=== PATIENT | female | born 1940 | race Caucasian/White ===

== ENCOUNTER 2016-09-20 16:00 | Inpatient (IN) | payer MEDICARE, OTHER ==
[2016-09-20] MEDS ORDERED: Sodium Chloride 0.9% 10 ML Syringe FLUSH PRN (17:11)
--- NOTE | 2016-09-20 18:39 | EDM.PDOC ---
ED HISTORY OF PRESENT ILLNESS - General Chief Complaint: Cardiovascular Problem Stated Complaint: LOW HEART RATE Time Seen by Provider: 09/20/16 16:54 Source of Information: Reports: Patient, Other (Friends) History Limitations: Reports: No limitations - History of Present Illness INITIAL COMMENTS - FREE TEXT/NARRATIVE: The patient presents with syncope and generalized weakness. This has been going on for a few months. She get lightheaded very easy and she has passed out a few times. She also will get some headaches at times. She denies chest pain or shortness of breath. She has no abdominal pain, nausea or vomiting. She has no dysuria. She has no fever, chills or cough. She has been to a few doctors and even a placement secretary who put in a loop recorder. Nothing has been found for the cause of her symptoms. This has been affecting her life. She moved into [facility] and then she moved from the 3rd floor to the 1st floor. She also does not go do things any more. She missed [employer] study this morning and 2 of her friends there came to see her. One is a nurse and the other is Dr Wynne. Dr Wynne noticed her pulse was in the 30s. She was in bigeiny here but not profusing the PVCs so her heart rate was in the 30s. Timing/Duration: Reports: Week(s): Severity: moderate Improves with: Reports: None Worsens with: Reports: Movement Context, General: Reports: Activity Associated Symptoms (General): Reports: syncope. Denies: chest pain, cough, fever/chills, nausea/vomiting, shortness of breath - Related Data Allergies/ADRs: Allergies Allergy/AdvReac Type Severity Reaction Status Date / Time aspirin Allergy Chills Verified 08/23/16 09:17 Home Meds: Home Meds Levothyroxine [Synthroid] 50 mcg PO ACBRK 01/29/14 [History] Carboxymethylcellulose Sodium [Refresh Tears] 1 drop EYEBOTH DAILY 09/24/15 [ History] Melatonin 9 mg PO BEDTIME 11/22/15 [History] Vit C/E/Zn/Coppr/Lutein/Zeaxan [Preservision Areds 2 Softgel] 1 tab PO DAILY [History] Ranitidine HCl [Zantac] 150 mg PO BID 02/28/16 [History] Fluticasone Propionate [Flonase] 2 spray INH DAILY 09/20/16 [History] Lavender Oil [Lavender Fragrance Oil] 1 cap PO DAILY PRN 09/20/16 [History] Past Medical History HEENT History: Reports: Epistaxis, Impaired vision Other HEENT History: Wears glasses Cardiovascular History: Reports: High cholesterol Gastrointestinal History: Reports: Colon polyp, GERD Genitourinary History: Reports: Urinary incontinence 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: , 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 Musculoskeletal History: Reports: Arthritis Neurological History: Reports: Concussion Psychiatric History: Reports: Anxiety, Depression Endocrine/Metabolic History: Reports: Hypothyroidism - Infectious Disease History Infectious Disease History: Reports: Chicken pox, Measles, MRSA - Past Surgical History HEENT Surgical History: Reports: Cataract surgery, Naso-sinus surgery Female Surgical History: Reports: D&C, Hysterectomy, Salpingo-oophorectomy Neurological Surgical History: Reports: Lumbar spine Musculoskeletal Surgical History: Reports: Arthroscopic knee Social & Family History - Family History Family Medical History: Noncontributory - Tobacco Use Smoking Status *Q: Never Smoker Second Hand Smoke Exposure: No - Caffeine Use Caffeine Use: Reports: Tea - Alcohol Use Days Per Week of Alcohol Use: 0 - Recreational Drug Use Recreational Drug Use: No Drug Use in Last 12 Months: No - Living Situation & Occupation Living situation: Reports: , alone Occupation: retired ED ROS GENERAL - Review of Systems Review Of Systems: See Below Constitutional: Reports: no symptoms HEENT: Reports: No symptoms Respiratory: Reports: no symptoms Cardiovascular: Reports: Other (bradycardia) Endocrine: Reports: no symptoms GI/Abdominal: Reports: No symptoms : Reports: no symptoms Musculoskeletal: Reports: no symptoms Skin: Reports: no symptoms Neurological: Reports: no symptoms ED EXAM, GENERAL - Physical Exam Exam: See Below Exam Limited By: No limitations General Appearance: alert, no apparent distress Ears: normal external exam Nose: normal inspection Head: atraumatic, normocephalic Neck: normal inspection Respiratory/Chest: no respiratory distress, lungs clear, normal breath sounds Cardiovascular: no edema, no murmur, bradycardia GI/Abdominal: soft, non tender, no organomegaly Back Exam: normal inspection Extremities: normal inspection EKG INTERPRETATION EKG Date: 09/20/16 Time: 16:21 Rhythm: NSR Rate (beats/min): 88 [place]: normal P-wave: present QRS: normal ST-T: normal QT: normal EKG Interpretation Comments: Ventricular bigeminy Course - Vital Signs Last Recorded V/S: Last Vital Signs Temp 96.8 F 09/20/16 16:12 Pulse 76 09/20/16 16:12 Resp 14 09/20/16 16:12 BP 153/72 H 09/20/16 16:12 Pulse Ox 100 09/20/16 16:12 - Orders/Labs/Meds Orders: Active Orders 24 hr Category Date Time Status Patient Status [ADT] Routine ADT 09/20/16 18:38 Active Cardiac Monitoring [RC] . DIRECTED Care 09/20/16 17:11 Active EKG Documentation Completion [RC] STAT Care 09/20/16 17:11 Active Peripheral IV Care [RC] . DIRECTED Care 09/20/16 17:12 Active Chest 1V Frontal [CR] Stat Exams 09/20/16 17:12 Taken Sodium Chloride 0.9% [Saline Flush] Med 09/20/16 17:11 Active 10 ml FLUSH ASDIRECTED PRN Peripheral IV Insertion Adult [OM.PC] Stat Oth 09/20/16 17:11 Ordered Medication Orders Sodium Chloride (Saline Flush) 10 ml FLUSH ASDIRECTED PRN PRN Reason: Keep Vein Open Last Admin: 09/20/16 17:34 Dose: 10 ml Labs: Laboratory Tests 09/20/16 09/20/16 Range/Units 17:24 17:24 WBC 6.10 (3.98-10.04) K/mm3 RBC 3.98 (3.98-5.22) M/mm3 Hgb 11.9 (11.2-15.7) gm/L Hct 34.9 (34.1-44.9) % MCV 87.7 (79.4-94.8) fl MCH 29.9 (25.6-32.2) pg MCHC 34.1 (32.2-35.5) g/dl RDW Std Deviation 50.1 H (36.4-46.3) fL Plt Count 201 (182-369) K/mm3 MPV 10.2 (9.4-12.3) fl Neut % (Auto) 55.4 (34.0-71.1) % Lymph % (Auto) 28.9 (19.3-51.7) % [place] % (Auto) 13.9 H (4.7-12.5) % Eos % (Auto) 1.5 (0.7-5.8) Baso % (Auto) 0.3 (0.1-1.2) % Neut # 3.38 (1.56-6.13) K/mm3 Lymph # 1.76 (1.18-3.74) K/mm3 [place] # 0.85 H (0.24-0.36) K/mm3 Eos # 0.09 (0.04-0.36) K/mm3 Baso # 0.02 (0.01-0.08) K/mm3 Sodium 134 L (136-145) mEq/L Potassium 4.1 (3.5-5.1) mEq/L Chloride 99 (98-107) mEq/L Carbon Dioxide 27 (21-32) mEq/L Anion Gap 12.1 (5-15) BUN 14 (7-18) mg/dL Creatinine 0.7 (0.55-1.02) mg/dL Est Cr Clr Drug Dosing 48.34 mL/min Estimated GFR (MDRD) > 60 (>60) mL/min BUN/Creatinine Ratio 20.0 H (14-18) Glucose 92 (74-106) mg/dL Calcium 8.6 (8.5-10.1) mg/dL Total Bilirubin 0.6 (0.2-1.0) mg/dL AST 19 (15-37) U/L ALT 31 (14-59) U/L Alkaline Phosphatase 56 (46-116) U/L Troponin I < 0.017 (0.00-0.056) ng/mL Total Protein 6.6 (6.4-8.2) g/dl Albumin 3.6 (3.4-5.0) g/dl Globulin 3.0 gm/dL Albumin/Globulin Ratio 1.2 (1-2) TSH 3rd Generation 1.085 (0.358-3.74) uIU/mL Meds: Medications Generic Name Dose Route Start Last Admin Trade Name Freq PRN Reason Stop Dose Admin Sodium Chloride 10 ml 09/20/16 17:11 09/20/16 17:34 Saline Flush FLUSH 10 ml ASDIRECTED PRN Administration Keep Vein Open - Re-Assessments/Exams Free Text/Narrative Re-Assessment/Exam: 09/20/16 18:53 I ordered an IV saline lock. Her EKG shows NSR and ventricular bigeminy. The PVCs are not profusing and her heart rate is slow in the 30s. Her CBC and CMP look good. Her troponin is negative. I feel she needs to be admitted and possibly get a pacemaker. I talked with Dr Choudhary and she agreed to the admission and I also talked with Dr Rodriguez. Departure - Departure Time of Disposition: 19:00 Disposition: Refer to Observation Condition: fair Clinical Impression: Syncope, Dizziness, Bradycardia, Generalized weakness Forms: ED Department Discharge - My Orders Last 24 Hours: My Active Orders 09/20/16 17:11 Cardiac Monitoring [RC] . DIRECTED EKG Documentation Completion [RC] STAT Sodium Chloride 0.9% [Saline Flush] 10 ml FLUSH ASDIRECTED PRN Peripheral IV Insertion Adult [OM.PC] Stat 09/20/16 17:12 Peripheral IV Care [RC] . DIRECTED Chest 1V Frontal [CR] Stat 09/20/16 18:38 Patient Status [ADT] Routine - Assessment/Plan Last 24 Hours: My Active Orders 09/20/16 17:11 Cardiac Monitoring [RC] . DIRECTED EKG Documentation Completion [RC] STAT Sodium Chloride 0.9% [Saline Flush] 10 ml FLUSH ASDIRECTED PRN Peripheral IV Insertion Adult [OM.PC] Stat 09/20/16 17:12 Peripheral IV Care [RC] . DIRECTED Chest 1V Frontal [CR] Stat 09/20/16 18:38 Patient Status [ADT] Routine
--- NOTE | 2016-09-20 20:49 | PCM.HP ---
H&P History of Present Illness - General Date of Service: 09/20/16 Admit Problem/Dx: Admission Diagnosis/Problem Admission Diagnosis/Problem Syncope Source of Information: Patient, Provider History Limitations: Reports: No limitations - History of Present Illness Initial Comments - Free Text/Narative: 76 year old female who has been evaluated over several months has had syncopal as well as pre-syncopal episodes. Reportedly had a loop recorder without identification of an arrhythmia. Apparently had a syncopal episode on the day of admission, associated with generalized weakness. Lifestyle has been effected including moving to a lower level unit at [facility] to minimize fatigue. No other cardiac complaints were voiced. Physical exam as well as ECG document HR 30-40s. Obs admission will be ordered, [facility] TBA on 09/21/16. Onset of Symptoms: Reports: gradual Duration of Symptoms: Reports: Week(s):, Getting worse, Intermittent Location: Reports: chest Quality: Reports: Same as previous episode Improves with: Reports: None Worsens with: Reports: None Associated Symptoms: Reports: shortness of breath, weakness, other (presyncopal) Right Middle Anterior Abdomen Pain Score (Numeric/FACES): 5 - Related Data Allergies/Adverse Reactions: Allergies Allergy/AdvReac Type Severity Reaction Status Date / Time aspirin Allergy Chills Verified 08/23/16 09:17 Home Medications: Home Meds Levothyroxine [Synthroid] 50 mcg PO ACBRK 01/29/14 [History] Carboxymethylcellulose Sodium [Refresh Tears] 1 drop EYEBOTH DAILY 09/24/15 [ History] Melatonin 9 mg PO BEDTIME 11/22/15 [History] Vit C/E/Zn/Coppr/Lutein/Zeaxan [Preservision Areds 2 Softgel] 1 tab PO DAILY [History] Ranitidine HCl [Zantac] 150 mg PO BID 02/28/16 [History] Fluticasone Propionate [Flonase] 2 spray INH DAILY 09/20/16 [History] Lavender Oil [Lavender Fragrance Oil] 1 cap PO DAILY PRN 09/20/16 [History] Past Medical History HEENT History: Reports: Impaired vision Other HEENT History: Wears glasses Cardiovascular History: Reports: High cholesterol, Other (see below) Other Cardiovascular History: loop recorder Gastrointestinal History: Reports: Colon polyp, GERD Genitourinary History: Reports: Urinary incontinence 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: , 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 Musculoskeletal History: Reports: Arthritis Neurological History: Reports: Concussion Psychiatric History: Reports: Anxiety, Depression Endocrine/Metabolic History: Reports: Hypothyroidism - Infectious Disease History Infectious Disease History: Reports: Chicken pox, Measles - Past Surgical History HEENT Surgical History: Reports: Cataract surgery, Naso-sinus surgery Cardiovascular Surgical History: Reports: None GI Surgical History: Reports: Other (see below) Other GI Surgeries/Procedures: had 2 polyps removed and were not cancerus Female Surgical History: Reports: D&C, Hysterectomy, Salpingo-oophorectomy Endocrine Surgical History: Reports: None Neurological Surgical History: Reports: Lumbar spine Other Neurological Surgeries/Procedures: minor surgeryto back Musculoskeletal Surgical History: Reports: Arthroscopic knee Social & Family History - Family History Family Medical History: Noncontributory - Tobacco Use Smoking Status *Q: Never Smoker Second Hand Smoke Exposure: No - Caffeine Use Caffeine Use: Reports: Soda Caffeine Use Comment: rarely with upset stomache and occassionally chamomile tea - Alcohol Use Days Per Week of Alcohol Use: 0 - Recreational Drug Use Recreational Drug Use: No Drug Use in Last 12 Months: No - Living Situation & Occupation Living situation: Reports: , alone Occupation: retired H&P Review of Systems - Review of Systems: Review Of Systems: See Below General: Reports: weakness, fatigue HEENT: Reports: no symptoms Pulmonary: Reports: shortness of breath Cardiovascular: Reports: dyspnea on exertion, lightheadedness. Denies: no symptoms Gastrointestinal: Reports: No symptoms Genitourinary: Reports: no symptoms Musculoskeletal: Reports: no symptoms Skin: Reports: no symptoms Psychiatric: Reports: no symptoms Neurological: Reports: no symptoms Hematologic/Lymphatic: Reports: no symptoms Immunologic: Reports: no symptoms Exam - Exam Exam: See Below - Vital Signs Vital Signs: Last Vital Signs Temp 36.0 C 09/20/16 16:12 Pulse 76 09/20/16 16:12 Resp 14 09/20/16 16:12 BP 153/72 H 09/20/16 16:12 Pulse Ox 100 09/20/16 16:12 Weight: 48.353 kg - Exam Quality Assessment: DVT prophylaxis General: alert, oriented, cooperative HEENT: Conjunctiva clear, EACs clear, EOMI, Hearing intact, Mucosa moist & pink , Nares patent, Normal nasal septum, Posterior pharynx clear, Pupils equal, Pupils reactive Neck: supple, trachea midline Lungs: Normal respiratory effort Cardiovascular: regular rate, irregular rhythm, bradycardia Abdomen: normal bowel sounds, soft (Female) Exam: Deferred Rectal (Female) Exam: Deferred Back Exam: normal inspection Extremities: normal inspection Skin: warm, dry Neurological: cranial nerves intact, normal speech Neuro Extensive - Mental Status: alert, oriented x3, normal mood/affect, normal cognition, memory intact Neuro Extensive - Motor, Sensory, Reflexes: CN II-XII intact Psychiatric: alert, normal affect, normal mood - Patient Data Result Diagrams: 09/22/16 05:22 09/22/16 05:22 *Q Meaningful Use (ADM) - VTE *Q VTE Criteria *Q: - Stroke *Q Stroke Criteria *Q: - AMI *Q AMI Criteria *Q: Problem List Initiated/Reviewed/Updated: Yes Orders Last 24hrs: Active Orders 24 hr Category Date Time Status Antiembolic Devices [RC] PER UNIT ROUTINE Care 09/20/16 20:40 Ordered Bedrest [RC] ASDIRECTED Care 09/20/16 20:35 Ordered EKG 12 Lead [EKG Documentation Completion] [RC] ROUTINE Care 09/21/16 08:00 Ordered Vital Signs [RC] PER UNIT ROUTINE Care 09/20/16 20:31 Ordered Heart Healthy Diet [DIET] Diet 09/20/16 Dinner Ordered CXR [Chest 1V Frontal] [CR] Routine Exams 09/21/16 17:00 Ordered Echo Comp wo Cont [US] Routine Exams 09/21/16 09:00 Ordered BASIC METABOLIC PANEL,BMP [CHEM] Routine Lab 09/21/16 05:00 Ordered CBC WITH AUTO DIFF [HEME] Routine Lab 09/21/16 05:00 Ordered INR,PT,PROTHROMBIN TIME [COAG] Routine Lab 09/21/16 05:00 Ordered LIPID PANEL [CHEM] Routine Lab 09/21/16 05:00 Ordered PTT,PARTIAL THROMBOPLSTIN TIME [COAG] Routine Lab 09/21/16 05:00 Ordered Carboxymethylcellulose Sodium Med 09/21/16 09:00 Ordered 1 drop EYEBOTH DAILY Famotidine [Pepcid] Med 09/20/16 21:00 Active 20 mg PO BID Fluticasone Propionate Med 09/21/16 09:00 Ordered 2 spray INH DAILY Levothyroxine [Synthroid] Med 09/20/16 19:45 Active 50 mcg PO ACBRK Melatonin Med 09/20/16 21:00 Pending 9 mg PO BEDTIME [place] Hose [Antiembolic Hose] [OM.PC] Routine Oth 09/20/16 20:40 Ordered Medication Orders Famotidine (Pepcid) 20 mg PO BID CELIO Levothyroxine Sodium (Synthroid) 50 mcg PO ACBRK CELIO Non-Formulary Medication (Melatonin) 9 mg PO BEDTIME CELIO Non-Formulary Medication (Fluticasone Propionate) 2 spray INH DAILY CELIO Non-Formulary Medication (Carboxymethylcellulose Sodium) 1 drop EYEBOTH DAILY CELIO Sodium Chloride (Saline Flush) 10 ml FLUSH ASDIRECTED PRN PRN Reason: Keep Vein Open Last Admin: 09/20/16 17:34 Dose: 10 ml Assessment/Plan Comment:: Impression: Sinus node dysfunction Symptomatic bradycardia Syncope, acute with frequent episodes of lightheadedness/presyncope Plan: DVT/GI prophylaxis PPM, planned 09/21/16 at 1300. CXR post procedure DC~24-48 hours post op Consult PT/OT/SW
[2016-09-20] MEDS ORDERED: MELATONIN 9 MG PO SCH (21:00)
[2016-09-20] MEDS ORDERED: traZODone 50 MG Tab PO PRN (21:25)
[2016-09-20] MEDS: Levothyroxine 50 MCG Tab PO SCH (21:29)
[2016-09-20] MEDS: Famotidine 20 MG Tab PO SCH (21:37)
[2016-09-21] MEDS: Levothyroxine 50 MCG Tab PO SCH (05:14)
[2016-09-21] MEDS: Famotidine 20 MG Tab PO SCH ×2 (08:41→08:52)
--- NOTE | 2016-09-21 08:41 | CR ---
Chest: Portable view of the chest was obtained. Comparison: Previous portable chest x-ray of 08/23/16. Heart size at the upper limits of normal. Tortuous thoracic aorta is seen. Atherosclerotic change is noted within the aortic knob. Lungs are clear with no acute infiltrates. Mild scoliosis is noted within the spine with scattered degenerative change. Bony structures are also osteopenic. Impression: 1. Incidental findings. Nothing acute is identified on portable chest x-ray. Diagnostic code #2
[2016-09-21] MEDS ORDERED: FLUTICASONE PROPIONATE INH SCH (09:00)
[2016-09-21] MEDS ORDERED: Non-Formulary Medication 1 Each (Carboxymethylcellulose Sodium 1 DROP) EYEBOTH SCH (09:00)
[2016-09-21] MEDS: Hypromellose 0.5% Ophth Soln 15 ML Bottle EYEBOTH SCH (10:10)
[2016-09-21] MEDS ORDERED: Ondansetron 4 MG/2 ML SDV IVPUSH PRN (10:54)
[2016-09-21] MEDS ORDERED: fentaNYL 100 MCG/2 ML SDV IVPUSH PRN (10:54)
--- NOTE | 2016-09-21 10:54 | PCM.PREANE ---
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219 kg ASA Class: 3 Mental Status: alert & oriented x3 Airway Class: Mallampati = 3 Dentition: Reports: normal dentition Thyro-Mental Finger Breadths: 2 Mouth Opening Finger Breadths: 3 ROM/Head Extension: limited/partial Respiratory Status: lungs clear to auscultation bilaterally Cardiovascular Status: no murmur, irregular pulse - LAB Values: Laboratory Last Values WBC 5.20 K/mm3 (3.98-10.04) 09/21/16 05:15 RBC 3.98 M/mm3 (3.98-5.22) 09/21/16 05:15 Hgb 11.9 gm/L (11.2-15.7) 09/21/16 05:15 Hct 35.2 % (34.1-44.9) 09/21/16 05:15 MCV 88.4 fl (79.4-94.8) 09/21/16 05:15 MCH 29.9 pg (25.6-32.2) 09/21/16 05:15 MCHC 33.8 g/dl (32.2-35.5) 09/21/16 05:15 RDW Std Deviation 51.0 fL (36.4-46.3) H 09/21/16 05:15 Plt Count 194 K/mm3 (182-369) 09/21/16 05:15 MPV 10.9 fl (9.4-12.3) 09/21/16 05:15 Neut % (Auto) 47.5 % (34.0-71.1) 09/21/16 05:15 Lymph % (Auto) 36.0 % (19.3-51.7) 09/21/16 05:15 [place] % (Auto) 14.2 % (4.7-12.5) H 09/21/16 05:15 Eos % (Auto) 2.1 (0.7-5.8) 09/21/16 05:15 Baso % (Auto) 0.2 % (0.1-1.2) 09/21/16 05:15 Neut # 2.47 K/mm3 (1.56-6.13) 09/21/16 05:15 Lymph # 1.87 K/mm3 (1.18-3.74) 09/21/16 05:15 [place] # 0.74 K/mm3 (0.24-0.36) H 09/21/16 05:15 Eos # 0.11 K/mm3 (0.04-0.36) 09/21/16 05:15 Baso # 0.01 K/mm3 (0.01-0.08) 09/21/16 05:15 Manual Slide Review Not Reportable 09/21/16 05:15 PT 10.8 SECONDS (8.0-13.0) 09/21/16 05:15 INR 1.02 09/21/16 05:15 APTT 25 SECONDS (22-36) 09/21/16 05:15 Sodium 139 mEq/L (136-145) 09/21/16 05:15 Potassium 4.2 mEq/L (3.5-5.1) 09/21/16 05:15 Chloride 105 mEq/L (98-107) 09/21/16 05:15 Carbon Dioxide 29 mEq/L (21-32) 09/21/16 05:15 Anion Gap 9.2 (5-15) 09/21/16 05:15 BUN 12 mg/dL (7-18) 09/21/16 05:15 Creatinine 0.7 mg/dL (0.55-1.02) 09/21/16 05:15 Est Cr Clr Drug Dosing 48.34 mL/min 09/21/16 05:15 Estimated GFR (MDRD) > 60 mL/min (>60) 09/21/16 05:15 BUN/Creatinine Ratio 17.1 (14-18) 09/21/16 05:15 Glucose 83 mg/dL (74-106) 09/21/16 05:15 Calcium 8.3 mg/dL (8.5-10.1) L 09/21/16 05:15 Total Bilirubin 0.6 mg/dL (0.2-1.0) 09/20/16 17:24 AST 19 U/L (15-37) 09/20/16 17:24 ALT 31 U/L (14-59) 09/20/16 17:24 Alkaline Phosphatase 56 U/L (46-116) 09/20/16 17:24 Troponin I < 0.017 ng/mL (0.00-0.056) 09/20/16 17:24 Total Protein 6.6 g/dl (6.4-8.2) 09/20/16 17:24 Albumin 3.6 g/dl (3.4-5.0) 09/20/16 17:24 Globulin 3.0 gm/dL 09/20/16 17:24 Albumin/Globulin Ratio 1.2 (1-2) 09/20/16 17:24 Triglycerides 26 mg/dL (<150) 09/21/16 05:15 Cholesterol 201 mg/dL (<200) H 09/21/16 05:15 LDL Cholesterol Direct 99 mg/dL (<100) 09/21/16 05:15 HDL Cholesterol 102.0 mg/dL (40-59) H 09/21/16 05:15 TSH 3rd Generation 1.085 uIU/mL (0.358-3.74) 09/20/16 17:24 - ALLERGIES Allergies/Adverse Reactions: Allergies Allergy/AdvReac Type Severity Reaction Status Date / Time aspirin Allergy Chills Verified 08/23/16 09:17 - BLOOD Blood Available: No Product(s) Available: None - ANESTHESIA PLAN Anesthesia Type Planned: MAC - ACKNOWLEDGEMENTS Pt an appropriate candidate for the planned anesthesia: Yes Alternatives and risks of anesthesia discussed w pt/guardian: Yes Pt/Guardian understands and agree with anesthesia plan: Yes PreAnesthesia Questionnaire HEENT History: Reports: Impaired vision Other HEENT History: Wears glasses Cardiovascular History: Reports: High cholesterol, Other (see below) Other Cardiovascular History: loop recorder Gastrointestinal History: Reports: Colon polyp, GERD Genitourinary History: Reports: Urinary incontinence 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: , 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 Musculoskeletal History: Reports: Arthritis Neurological History: Reports: Concussion Psychiatric History: Reports: Anxiety, Depression Endocrine/Metabolic History: Reports: Hypothyroidism - Infectious Disease History Infectious Disease History: Reports: Chicken pox, Measles - Past Surgical History HEENT Surgical History: Reports: Cataract surgery, Naso-sinus surgery Cardiovascular Surgical History: Reports: None GI Surgical History: Reports: Other (see below) Other GI Surgeries/Procedures: had 2 polyps removed and were not cancerus Female Surgical History: Reports: D&C, Hysterectomy, Salpingo-oophorectomy Endocrine Surgical History: Reports: None Neurological Surgical History: Reports: Lumbar spine Other Neurological Surgeries/Procedures: minor surgeryto back Musculoskeletal Surgical History: Reports: Arthroscopic knee - SUBSTANCE USE Smoking Status *Q: Never Smoker Second Hand Smoke Exposure: No Days Per Week of Alcohol Use: 0 Recreational Drug Use History: No - HOME MEDS Home Medications: Home Meds Levothyroxine [Synthroid] 50 mcg PO ACBRK 01/29/14 [History] Carboxymethylcellulose Sodium [Refresh Tears] 1 drop EYEBOTH DAILY 09/24/15 [ History] Melatonin 9 mg PO BEDTIME 11/22/15 [History] Vit C/E/Zn/Coppr/Lutein/Zeaxan [Preservision Areds 2 Softgel] 1 tab PO DAILY [History] Ranitidine HCl [Zantac] 150 mg PO BID 02/28/16 [History] Fluticasone Propionate [Flonase] 2 spray INH DAILY 09/20/16 [History] Lavender Oil [Lavender Fragrance Oil] 1 cap PO DAILY PRN 09/20/16 [History] - CURRENT (IN HOUSE) MEDS Current Meds: Current Medications Artificial Tears (Isopto Tears 0.5% Ophth Soln) 0 ml EYEBOTH DAILY CELIO Famotidine (Pepcid) 20 mg PO DAILY CELIO Last Admin: 09/21/16 08:52 Dose: Not Given Flunisolide (Nasalide Nasal [place]) 0 ml NASBOTH Q12H [facility] Last Admin: 09/21/16 08:50 Dose: 1 spray Levothyroxine Sodium (Synthroid) 50 mcg PO ACBRK [facility] Last Admin: 09/21/16 05:14 Dose: 50 mcg Sodium Chloride (Saline Flush) 10 ml FLUSH ASDIRECTED PRN PRN Reason: Keep Vein Open Last Admin: 09/20/16 17:34 Dose: 10 ml Trazodone HCl (Trazodone) 50 mg PO ONETIME PRN PRN Reason: Sleep Last Admin: 09/20/16 21:37 Dose: 50 mg Discontinued Medications Famotidine (Pepcid) 20 mg PO BID [facility] Last Admin: 09/21/16 08:41 Dose: 20 mg Non-Formulary Medication (Melatonin) 9 mg PO BEDTIME [facility] Last Admin: 09/20/16 22:55 Dose: Not Given
[2016-09-21] MEDS ORDERED: fentaNYL 100 MCG/2 ML SDV ONE (12:49)
[2016-09-21] MEDS ORDERED: Propofol 200 MG/20 ML SDV ONE ×2 (12:49→16:29)
--- NOTE | 2016-09-21 12:59 | CONS ---
CONSULTING PHYSICIAN: Yuri Rodriguez MD DATE OF CONSULTATION: 09/21/2016 HISTORY: This is a 76-year-old female who came through the emergency room with a syncopal episode and generalized weakness. She would get lightheaded very easy and would pass out a few times and would have headaches. This has been going on for a number of years. Loop recorder was placed, but nothing was found. She has been affected severely by this in that she had to move to a more secure location and so has not been able to engage in activities, such as a Bible study. She was seen by Dr. Wynne who noted her pulse was 30 and was in bigeminy. Recordings here demonstrated bradycardia. Denies any chest pain, shortness of breath, cough, hoarseness, or wheezing. No nausea, vomiting, indigestion, or gas pain. No bleeding, hematemesis, or hematochezia. PAST MEDICAL HISTORY: High cholesterol, reports of colon polyps, history of depression, and hypothyroidism. MEDICATIONS: Per medication reconciliation form. PAST SURGICAL HISTORY: She has had lumbar spine surgery, hysterectomy, and cataract surgery. SOCIAL HISTORY: Does not smoke or drink or use recreational drugs. FAMILY HISTORY: Negative. PHYSICAL EXAMINATION: GENERAL: Temperature 96, pulse 76, respirations 14, blood pressure 153/72. EYES: Sclerae white. Extraocular muscle motion normal. Oral cavity, healthy mucous membrane with mouth and tongue. NECK: Supple. No nodes. No thyromegaly. LUNGS: Clear. No rales, rhonchi, fremitus, or dullness. HEART: Tones bradycardia. ABDOMEN: Soft. No tenderness, guarding, or rebound. EXTREMITIES: Upper extremities, moves all 4. NEUROLOGIC: 3 through 12 intact. No sensorineural deficit. MUSCULOSKELETAL: No musculoskeletal problems. PSYCH: She is alert and cooperative. Psychic is normal. IMAGING: Chest x-ray, incidental findings, no acute process identified. EKG shows biatrial enlargement, ventricular bigeminy, normal sinus rhythm, rate of about 50 and irregular. LABORATORY DATA: White count 5, hemoglobin 11, and platelet count is 194. Sodium 136, potassium 4.2, chloride 105, CO2 29. ASSESSMENT: Bradycardia with fainting. RECOMMENDATION: Bipolar dual-channel pacemaker. Discussed the procedure with the patient with the risks and the complications. She understands and consents. MMODAL /[id number]
[2016-09-21] MEDS ORDERED: Sodium Chloride 0.9% 50 ML SDV ONE (14:46)
[2016-09-21] MEDS ORDERED: Lidocaine 1% with EPINEPHrine 1:100,000 20 ML MDV ONE ×2 (14:46→16:47)
[2016-09-21] MEDS ORDERED: Lidocaine 1% 2 ML SDV ONE (15:52)
--- NOTE | 2016-09-21 17:12 | PCM.OPNOTE ---
- General Post-Op/Procedure Note Date of Surgery/Procedure: 09/21/16 Operative Procedure(s): dual channel pacemker Pre Op Diagnosis: bradycardia with syncopy Post-Op Diagnosis: Same Anesthesia Technique: MAC Primary Surgeon: Ashlyn Choudhary Secondary Surgeon: Yuri Rodriguez EBL in mLs: 5 Complications: None Condition: Good Free Text/Narrative:: Intake & Output 09/21/16 09/21/16 09/21/16 07:59 15:59 23:59 Intake Total 100 690 0 Output Total 500 600 Balance -400 690 -600
--- NOTE | 2016-09-21 18:16 | PCM.POSTAN ---
POST ANESTHESIA ASSESSMENT - MENTAL STATUS Mental Status: alert, oriented - VITAL SIGNS Pulse Rate: 75 SaO2: 100 Resp Rate: 18 Blood Pressure: 146/72 Temperature: 36.1 C - RESPIRATORY Respiratory Status: respiratory rate WNL, airway patent, O2 saturation stable - CARDIOVASCULAR CV Status: pulse rate WNL, blood pressure stable - GASTROINTESTINAL GI Status: no symptoms - PAIN Pain Score: 0 - POST OP HYDRATION Hydration Status: adequate & stable - OBSERVATIONS Free Text/Narrative:: no anesthesia complications noted
--- NOTE | 2016-09-21 18:27 | CR ---
Chest: Portable view of the chest was obtained. Comparison: Previous chest x-ray of 09/20/16. Pacemaker is seen. Without lateral view difficult to exactly determine lead position but one lead wire appears to be within the right atrium and second appears to be within the right ventricle. No pneumothorax is seen. Lungs are clear. Scoliosis and degenerative change is seen within the spine. Heart is mildly enlarged. Atherosclerotic change is again seen within the aortic knob. Impression: 1. Pacemaker placement. Other incidental findings as described above. Diagnostic code #2
[2016-09-21] MEDS ORDERED: ceFAZolin 2 GM in Premix Bag 1 BAG IV ONE (19:12)
[2016-09-21] MEDS: Metoprolol Tartrate 25 MG Tab PO SCH (20:26)
[2016-09-21] MEDS ORDERED: Magnesium Sulfate/Water 2 GM in Premix Bag 1 BAG IV ONE (20:39)
[2016-09-21] MEDS: Temazepam 7.5 MG Cap PO PRN (21:30)
[2016-09-21] MEDS ORDERED: Calcium Carbonate 500 MG Tab.Chew PO PRN (21:48)
--- NOTE | 2016-09-21 21:59 | OR ---
DATE OF OPERATION: 09/21/2016 SURGEON: MD Yuri Middleton MD PREOPERATIVE DIAGNOSIS: 1.Symptomatic bradycardia. 2.Sinus Node Dysfunction. POSTOPERATIVE DIAGNOSIS: 1. Symptomatic bradycardia. 2. Sinus Node Dysfunction. OPERATION PERFORMED: 1.Insertion of Med[employer]onic dual-chamber pacemaker: -REVEAL LINQ US MR, product #[id number]; serial #[id number]. -Right atrium, model #5076-45; serial #[id number]. -Right ventricular, model #5076-52; serial #[id number]. 2.Loop Recorder removal INDICATION FOR PROCEDURE: The patient is a 76-year-old female, who presented with a syncopal episode prior to admission. The patient has had a loop recorder for at least 2 years. Had been experiencing presyncopal as well as syncopal episodes, which had been increasing in frequency over the last several months prior to admission. Informed consent was obtained for dual-chamber pacemaker insertion as well as removal of the loop recorder. Risk, benefits and alternative therapies were discussed in detail. DESCRIPTION OF PROCEDURE: The patient was taken to the operating room in a fasting and nonsedated state. Informed consent had been obtained for a pacemaker insertion. The patient was placed in the supine position. Monitoring equipment was applied. The patient had monitored anesthesia care. An antibiotic, Ancef 2 g had been given prior to the procedure. The anterior chest wall was prepped and draped in the usual sterile manner. Betadine was utilized. Xylocaine 1% was used to infiltrate the area for insertion of a 9-Japanese sheath. The subclavian was utilized using the modified Seldinger technique. Prior to insertion of the 9-Japanese sheath, sharp dissection was performed. Subsequently, the right ventricular lead was placed, model #5076-52, serial #[id number]. This was placed in the right ventricular apex. The right ventricular lead was fixed per protocol under fluoroscopy. Prior to insertion of the right atrial lead, a 7-Japanese sheath was inserted over a guide wire. The right atrial lead was placed in the right atrial appendage under fluoroscopy; model #5076-45, serial #[id number]. The implantable senior chemical process engineer was then attached. Product #[id number]. Product name MON [id number], REVEAL LINQ US MR. The serial #[id number], prior to closure of the pocket for the pacemaker, stimulation thresholds were checked per protocol: Right atrium polarity bipolar pulse width 0.5 ms, voltage 1.4, current 2.7 mA, impedance 473 ohms. Right ventricle polarity bipolar pulse width 0.5 ms, voltage 0.7, current1.2 mA , impedance 731 ohms. Pacing mode: AAIR---DDDR; mode switch is on. Lower rate is 60, upper tracking/ activity rate is 130. Paced A-V interval: 180; Sensed A-V interval: 150; Rate adaptive A-V: off; Vent pacing/ sense response: off. After interrogation was deemed appropriate, the pacemaker pocket was closed. Interrupted 3-0 Vicryl suture was utilized.The skin was closed with subdermal 4-0 Dexon suture. Steri-Strips were applied and sterile dressing was placed. Next the Loop recorder was removed from the pocket using sterile technique. 1% Xylocaine was given prior to incision. Closure was as described for the pacemaker above. Steri- Strips were applied and a sterile dressing. The patient tolerated the procedure well. The patient was placed in recovery room and is expected to return to her prior room in the Med/Surg tele department. ANESTHESIA: MAC ESTIMATED BLOOD LOSS: 5 cc MMODAL /[id number] ROBE
[2016-09-21] MEDS ORDERED: Morphine 2 MG/ML Syringe IVPUSH PRN (22:50)
[2016-09-22] MEDS: Ketorolac 15 MG/ML SDV IVPUSH PRN ×3 (00:04→21:08)
[2016-09-22] MEDS: Levothyroxine 50 MCG Tab PO SCH (05:33)
[2016-09-22] MEDS ORDERED: Magnesium Hydroxide 400 MG/5 ML Susp 30 ML Cup PO ONE (07:30)
[2016-09-22] MEDS: Famotidine 20 MG Tab PO SCH (08:28)
[2016-09-22] MEDS: Hydrochlorothiazide/Triamterene 25-37.5 Tab PO SCH (08:29)
[2016-09-22] MEDS: Hypromellose 0.5% Ophth Soln 15 ML Bottle EYEBOTH SCH (08:29)
[2016-09-22] MEDS: Metoprolol Tartrate 25 MG Tab PO SCH ×2 (08:33→21:11)
--- NOTE | 2016-09-22 12:16 | PCM.PN ---
- General Info Date of Service: 09/22/16 Functional Status: Reports: pain controlled, tolerating diet, ambulating, urinating - Review of Systems General: Reports: weakness (minimal) HEENT: Reports: no symptoms Pulmonary: Reports: no symptoms Cardiovascular: Reports: no symptoms Gastrointestinal: Reports: No symptoms Genitourinary: Reports: no symptoms Musculoskeletal: Reports: no symptoms Skin: Reports: no symptoms Neurological: Reports: no symptoms Psychiatric: Reports: no symptoms - Patient Data Vitals - most recent: Last Vital Signs Temp 36.4 C 09/22/16 08:00 Pulse 89 09/22/16 08:33 Resp 20 09/22/16 08:00 BP 139/68 09/22/16 08:33 Pulse Ox 99 09/22/16 08:00 Weight - most recent: 47.854 kg I&O - last 24 hours: Intake & Output 09/21/16 09/22/16 09/22/16 22:59 06:59 14:59 Intake Total 100 877 330 Output Total 1100 975 Balance -1000 -98 330 Lab Results last 24 hrs: Laboratory Results - last 24 hr 09/22/16 09/22/16 Range/Units 05:22 05:22 WBC 6.37 (3.98-10.04) K/mm3 RBC 3.92 L (3.98-5.22) M/mm3 Hgb 11.8 (11.2-15.7) gm/L Hct 34.9 (34.1-44.9) % MCV 89.0 (79.4-94.8) fl MCH 30.1 (25.6-32.2) pg MCHC 33.8 (32.2-35.5) g/dl RDW Std Deviation 51.0 H (36.4-46.3) fL Plt Count 170 L (182-369) K/mm3 MPV 10.8 (9.4-12.3) fl Neut % (Auto) 56.1 (34.0-71.1) % Lymph % (Auto) 27.3 (19.3-51.7) % Dare % (Auto) 14.1 H (4.7-12.5) % Eos % (Auto) 2.0 (0.7-5.8) Baso % (Auto) 0.3 (0.1-1.2) % Neut # 3.57 (1.56-6.13) K/mm3 Lymph # 1.74 (1.18-3.74) K/mm3 Dare # 0.90 H (0.24-0.36) K/mm3 Eos # 0.13 (0.04-0.36) K/mm3 Baso # 0.02 (0.01-0.08) K/mm3 Sodium 137 (136-145) mEq/L Potassium 4.2 (3.5-5.1) mEq/L Chloride 102 (98-107) mEq/L Carbon Dioxide 31 (21-32) mEq/L Anion Gap 8.2 (5-15) BUN 13 (7-18) mg/dL Creatinine 0.7 (0.55-1.02) mg/dL Est Cr Clr Drug Dosing 48.34 mL/min Estimated GFR (MDRD) > 60 (>60) mL/min BUN/Creatinine Ratio 18.6 H (14-18) Glucose 81 (74-106) mg/dL Calcium 8.1 L (8.5-10.1) mg/dL Magnesium 2.6 H (1.8-2.4) mg/dl [place] Results last 24 hrs: Microbiology 09/20/16 21:41 MRSA Surveillance Culture - Final Nasal/Axilla/Groin NO MRSA ISOLATED Med Orders - Current: Current Medications Artificial Tears (Isopto Tears 0.5% Ophth Soln) 0 ml EYEBOTH DAILY [facility] Last Admin: 09/22/16 08:29 Dose: 1 drop Calcium Carbonate/Glycine (Tums) 1,000 mg PO TID PRN PRN Reason: Indigestion Last Admin: 09/21/16 22:09 Dose: 1,000 mg Famotidine (Pepcid) 20 mg PO DAILY [facility] Last Admin: 09/22/16 08:28 Dose: 20 mg Flunisolide (Nasalide Nasal [place]) 0 ml NASBOTH Q12H [facility] Last Admin: 09/22/16 08:28 Dose: 1 spray Ketorolac Tromethamine (Toradol) 15 mg IVPUSH Q6H PRN PRN Reason: Pain Stop: 09/26/16 22:50 Last Admin: 09/22/16 00:04 Dose: 15 mg Levothyroxine Sodium (Synthroid) 50 mcg PO ACBRK [facility] Last Admin: 09/22/16 05:33 Dose: 50 mcg Metoprolol Tartrate (Lopressor) 12.5 mg PO Q12HR [facility] Last Admin: 09/22/16 08:33 Dose: 12.5 mg Morphine Sulfate (Morphine) 2 mg IVPUSH Q4H PRN PRN Reason: Pain Sodium Chloride (Saline Flush) 10 ml FLUSH ASDIRECTED PRN PRN Reason: Keep Vein Open Last Admin: 09/20/16 17:34 Dose: 10 ml Temazepam (Restoril) 7.5 mg PO BEDTIME PRN PRN Reason: Insomnia Last Admin: 09/21/16 21:30 Dose: 7.5 mg Trazodone HCl (Trazodone) 50 mg PO ONETIME PRN PRN Reason: Sleep Last Admin: 09/20/16 21:37 Dose: 50 mg Triamterene/HCTZ (Maxzide 25-37.5 Mg) 1 each PO DAILY [facility] Last Admin: 09/22/16 08:29 Dose: 1 each Discontinued Medications Famotidine (Pepcid) 20 mg PO BID [facility] Last Admin: 09/21/16 08:41 Dose: 20 mg Fentanyl (Sublimaze) 50 mcg IVPUSH Q5M PRN PRN Reason: pain Stop: 09/21/16 18:00 Last Admin: 09/21/16 17:35 Dose: 50 mcg Fentanyl (Sublimaze) Confirm Administered Dose 100 mcg .ROUTE .STK-MED ONE Stop: 09/21/16 12:50 Cefazolin Sodium/Dextrose 2 gm (/ Premix) 50 mls @ 100 mls/hr IV ONETIME ONE Stop: 09/21/16 19:41 Last Admin: 09/21/16 20:25 Dose: 100 mls/hr Magnesium Sulfate 2 gm/ Premix 50 mls @ 25 mls/hr IV ONETIME ONE Stop: 09/21/16 22:38 Last Admin: 09/21/16 21:30 Dose: 25 mls/hr Lidocaine HCl (Lidocaine 1%) Confirm Administered Dose 4 ml .ROUTE .STK-MED ONE Stop: 09/21/16 15:53 Lidocaine/Epinephrine (Xylocaine 1% With Epinephrine 1:100,000) Confirm Administered Dose 20 ml .ROUTE .STK-MED ONE Stop: 09/21/16 14:47 Last Admin: 09/21/16 17:00 Dose: 23 ml Lidocaine/Epinephrine (Xylocaine 1% With Epinephrine 1:100,000) Confirm Administered Dose 20 ml .ROUTE .STK-MED ONE Stop: 09/21/16 16:48 Magnesium Hydroxide (Milk Of Magnesia) 30 ml PO ONETIME ONE Stop: 09/22/16 07:31 Last Admin: 09/22/16 08:28 Dose: 30 ml Non-Formulary Medication (Melatonin) 9 mg PO BEDTIME [facility] Last Admin: 09/20/16 22:55 Dose: Not Given Ondansetron HCl (Zofran) 4 mg IVPUSH ONETIME PRN PRN Reason: Nausea/Vomiting Stop: 09/21/16 18:00 Propofol (Diprivan 20 Ml) Confirm Administered Dose 200 mg .ROUTE .STK-MED ONE Stop: 09/21/16 12:50 Propofol (Diprivan 20 Ml) Confirm Administered Dose 200 mg .ROUTE .STK-MED ONE Stop: 09/21/16 16:30 Sodium Chloride (Normal Saline) Confirm Administered Dose 50 ml .ROUTE .STK-MED ONE Stop: 09/21/16 14:47 - Exam Quality Assessment: DVT prophylaxis General: alert, oriented, cooperative, no acute distress (improved after pain meds for PPM pocket) HEENT: Pupils equal, Pupils reactive, EOMI Neck: supple, trachea midline Lungs: Normal respiratory effort Cardiovascular: regular rate, regular rhythm Abdomen: bowel sounds present, soft, no tenderness, no distension (Female) Exam: Deferred Back Exam: normal inspection Extremities: no edema, normal pulses Skin: warm Wound/Incisions: dressing dry and intact, no drainage Neurological: no new focal deficit, normal gait, normal speech Psy/Mental Status: alert, normal affect, normal mood - Problem List & Annotations (1) Bradycardia SNOMED Code(s): 17249101 Code(s): R00.1 - BRADYCARDIA, UNSPECIFIED Status: Acute Current Visit: Yes (2) Dizziness SNOMED Code(s): 790611729, 886784822 Code(s): R42 - DIZZINESS AND GIDDINESS Status: Acute Current Visit: Yes (3) Generalized weakness SNOMED Code(s): 06372834 Code(s): R53.1 - WEAKNESS Status: Acute Current Visit: Yes (4) Syncope SNOMED Code(s): 037175478 Code(s): R55 - SYNCOPE AND COLLAPSE Status: Acute Current Visit: Yes (5) Atypical chest pain SNOMED Code(s): 486287731 Code(s): R07.89 - OTHER CHEST PAIN Status: Acute Current Visit: No - Problem List Review Problem List Initiated/Reviewed/Updated: Yes - My Orders Last 24 Hours: My Active Orders 09/21/16 13:00 Schedule Procedure [COMM] Routine 09/21/16 19:10 Temazepam [Restoril] 7.5 mg PO BEDTIME PRN 09/21/16 21:00 Metoprolol Tartrate [Lopressor] 12.5 mg PO Q12HR 09/21/16 21:48 Calcium Carbonate [Tums] 1,000 mg PO TID PRN 09/21/16 22:49 Ketorolac [Toradol] 15 mg IVPUSH Q6H PRN 09/21/16 22:50 Morphine 2 mg IVPUSH Q4H PRN 09/21/16 Lunch NPO Now [Nothing per Oral Now Diet] [DIET] 09/22/16 09:00 EKG 12 Lead [EKG Documentation Completion] [RC] ROUTINE HCTZ/Triamterene [Maxzide 25-37.5 MG] 1 each PO DAILY 09/22/16 10:02 Activity as Tolerated [RC] .Routine 09/22/16 10:03 Admission Status [Patient Status] [ADT] Routine 09/23/16 05:00 BMP [BASIC METABOLIC PANEL,BMP] [CHEM] Routine CBC WITH AUTO DIFF [HEME] Routine - Plan Plan:: Impression: POD1, s/p PPM; well functioning Minimal ventricular ectopy after BB started Chest wall tenderness Sinus node dysfunction Symptomatic bradycardia History of syncope, most recent episode [employer]. Plan: Change admit to full, DC 09/23/16; advance BB as tolerated, Pain control Arm sling, LUE Follow up with Dr Hernandes for post op check in 1 week. Cardiology follow up 2-4 weeks.
[2016-09-22] MEDS: Temazepam 7.5 MG Cap PO PRN (21:08)
[2016-09-23] MEDS: Levothyroxine 50 MCG Tab PO SCH (07:30)
[2016-09-23] MEDS: Metoprolol Tartrate 25 MG Tab PO SCH (08:46)
[2016-09-23] MEDS: Famotidine 20 MG Tab PO SCH (08:46)
[2016-09-23] MEDS: Hypromellose 0.5% Ophth Soln 15 ML Bottle EYEBOTH SCH (08:46)
[2016-09-23] MEDS: Hydrochlorothiazide/Triamterene 25-37.5 Tab PO SCH (08:46)
[2016-09-23 11:34] VITALS: BP 125/78
--- NOTE | 2016-09-24 08:35 | CR ---
Chest: Two views of the chest are obtained utilizing C-arm device. Study shows placement of a bichamber pacemaker. Fluoroscopy time is given as 345.8 seconds. Impression: 1. Fluoroscopy study showing placement of bichamber pacemaker. Diagnostic code #1
--- NOTE | 2016-10-10 15:16 | PCM.DCSUM1 ---
<Yumiko Chin M - Last Filed: 10/10/16 15:11> Discharge Summary - Hospital Course Free Text/Narrative:: 76 year old female who has been evaluated over several months has had syncopal as well as pre-syncopal episodes. Reportedly had a loop recorder without identification of an arrhythmia. Apparently had a syncopal episode on the day of admission, associated with generalized weakness. Lifestyle has been effected including moving to a lower level unit at [facility] to minimize fatigue. No other cardiac complaints were voiced. Physical exam as well as ECG document HR 30-40s. Obs admission will be ordered, PPM TBA on 09/21/16. Patient underwent medtronic, dual chamber pacemaker impantation, Reveal, done by Dr. Ashlyn Choudhary and Dr. Yuri Rodriguez during her stay for her symptomatic bradycardia. Patient tolerated procedure very well and will be discharged with home health care due to home bound status, generalized weakness, postoperative state for wound evaluation and education, medication education and teaching, vital signs monitoring. She will have follow up with her PCP, who will follow her Home Health care status after discharge. She is to follow up with Dr. Rodriguez for postop check in 1 week as well. Limited lifting, pushing, pulling, carrying with her left arm for the next 2 weeks. - Discharge Data Discharge Date: 09/20/16 (discharge date 09/23/16) Discharge Disposition: Home, Self-Care 01 Condition: Good - Patient Summary/Data Operative Procedure(s) Performed: dual channel pacemker Complications: None Consults: Consultations 09/21/16 09:35 Consult to Physician [CONS] Routine Labs Pending at D/C: None Recommended Follow-up Testing/Procedures: None Planned Operative Procedure(s) after DC: None Hospital Course: As above - Patient Instructions Diet: Heart Healthy Diet Activity: As Tolerated (minimal to no lifting, pushing, pulling, carrying with left arm for the next 2 weeks) Driving: Do Not Drive Showering/Bathing: May Shower Wound/Incision Care: Keep Operative Site/Wound Site Clean and Dry Notify Provider of: Fever, Increased Pain, Swelling and Redness - Discharge Plan Prescriptions/Med Rec: Calcium Carbonate [Tums] 1,000 mg PO TID #90 tab.chew Ibuprofen [Motrin] 600 mg PO Q8H PRN #21 tablet PRN Reason: Pain Home Medications: Home Meds Levothyroxine [Synthroid] 50 mcg PO ACBRK 01/29/14 [History] Carboxymethylcellulose Sodium [Refresh Tears] 1 drop EYEBOTH DAILY 09/24/15 [ History] Melatonin 10 mg PO BEDTIME 11/22/15 [History] Vit C/E/Zn/Coppr/Lutein/Zeaxan [Preservision Areds 2 Softgel] 1 tab PO DAILY [History] Ranitidine HCl [Zantac] 300 mg PO BID 02/28/16 [History] Fluticasone Propionate [Flonase] 2 spray INH DAILY 09/20/16 [History] Lavender Oil [Lavender Fragrance Oil] 1 cap PO BID PRN 09/20/16 [History] Calcium Carbonate [Tums] 1,000 mg PO TID #90 tab.chew 09/23/16 [Rx] Ibuprofen [Motrin] 600 mg PO Q8H PRN #21 tablet 09/23/16 [Rx] Cholecalciferol (Vitamin D3) [Vitamin D3] 5,000 units PO MOWEFR 09/25/16 [ History] Escitalopram [Lexapro] 5 mg PO DAILY 09/25/16 [History] Metoprolol Tartrate [Lopressor] 25 mg PO Q12HR 10/01/16 [History] Vitamin B Complex 1 cap PO DAILY 10/01/16 [History] Patient Handouts: Bradycardia, Pacemaker Implantation, Care After, Dizziness, [id number] Forms: ED Department Discharge Referrals: Yuri Rodriguez MD [Physician] - 10/01/16 3:00 pm (this appt. is at [facility] Rhea Craft PA-C [Ordering Only Provider] - 09/28/16 12:30 pm (This Appt. is in [facility]) Charis Desir MD [Primary Care Provider] - - Discharge Summary/Plan Comment DC Time >30 min.: Yes (40 min) - General Info Date of Service: 09/23/16 Functional Status: Reports: pain controlled, tolerating diet, ambulating, urinating. Denies: new symptoms - Review of Systems General: Reports: no symptoms HEENT: Reports: no symptoms Pulmonary: Reports: no symptoms Cardiovascular: Reports: no symptoms Gastrointestinal: Reports: No symptoms Genitourinary: Reports: no symptoms Musculoskeletal: Reports: no symptoms Skin: Reports: other (incision without concerns for infection) Neurological: Reports: no symptoms Psychiatric: Reports: no symptoms - Patient Data Vitals - Most Recent: Last Vital Signs Temp 97.3 F 09/23/16 11:26 Pulse 60 09/23/16 11:26 Resp 18 09/23/16 11:26 BP 125/78 09/23/16 11:26 Pulse Ox 99 09/23/16 11:26 Weight - Most Recent: 48.126 kg Med Orders - Current: Current Medications Discontinued Medications Artificial Tears (Isopto Tears 0.5% Ophth Soln) 0 ml EYEBOTH DAILY [facility] Last Admin: 09/23/16 08:46 Dose: 1 drop Calcium Carbonate/Glycine (Tums) 1,000 mg PO TID PRN PRN Reason: Indigestion Last Admin: 09/21/16 22:09 Dose: 1,000 mg Famotidine (Pepcid) 20 mg PO BID [facility] Last Admin: 09/21/16 08:41 Dose: 20 mg Famotidine (Pepcid) 20 mg PO DAILY [facility] Last Admin: 09/23/16 08:46 Dose: 20 mg Fentanyl (Sublimaze) 50 mcg IVPUSH Q5M PRN PRN Reason: pain Stop: 09/21/16 18:00 Last Admin: 09/21/16 17:35 Dose: 50 mcg Fentanyl (Sublimaze) Confirm Administered Dose 100 mcg .ROUTE .STK-MED ONE Stop: 09/21/16 12:50 Flunisolide (Nasalide Nasal [place]) 0 ml NASBOTH Q12H [facility] Last Admin: 09/23/16 08:46 Dose: 2 spray Cefazolin Sodium/Dextrose 2 gm (/ Premix) 50 mls @ 100 mls/hr IV ONETIME ONE Stop: 09/21/16 19:41 Last Admin: 09/21/16 20:25 Dose: 100 mls/hr Magnesium Sulfate 2 gm/ Premix 50 mls @ 25 mls/hr IV ONETIME ONE Stop: 09/21/16 22:38 Last Admin: 09/21/16 21:30 Dose: 25 mls/hr Ketorolac Tromethamine (Toradol) 15 mg IVPUSH Q6H PRN PRN Reason: Pain Stop: 09/26/16 22:50 Last Admin: 09/22/16 21:08 Dose: 15 mg Levothyroxine Sodium (Synthroid) 50 mcg PO ACBRK [facility] Last Admin: 09/23/16 07:30 Dose: 50 mcg Lidocaine HCl (Lidocaine 1%) Confirm Administered Dose 4 ml .ROUTE .STK-MED ONE Stop: 09/21/16 15:53 Lidocaine/Epinephrine (Xylocaine 1% With Epinephrine 1:100,000) Confirm Administered Dose 20 ml .ROUTE .STK-MED ONE Stop: 09/21/16 14:47 Last Admin: 09/21/16 17:00 Dose: 23 ml Lidocaine/Epinephrine (Xylocaine 1% With Epinephrine 1:100,000) Confirm Administered Dose 20 ml .ROUTE .STK-MED ONE Stop: 09/21/16 16:48 Magnesium Hydroxide (Milk Of Magnesia) 30 ml PO ONETIME ONE Stop: 09/22/16 07:31 Last Admin: 09/22/16 08:28 Dose: 30 ml Metoprolol Tartrate (Lopressor) 12.5 mg PO Q12HR [facility] Last Admin: 09/23/16 08:46 Dose: 12.5 mg Morphine Sulfate (Morphine) 2 mg IVPUSH Q4H PRN PRN Reason: Pain Non-Formulary Medication (Melatonin) 9 mg PO BEDTIME [facility] Last Admin: 09/20/16 22:55 Dose: Not Given Ondansetron HCl (Zofran) 4 mg IVPUSH ONETIME PRN PRN Reason: Nausea/Vomiting Stop: 09/21/16 18:00 Propofol (Diprivan 20 Ml) Confirm Administered Dose 200 mg .ROUTE .STK-MED ONE Stop: 09/21/16 12:50 Propofol (Diprivan 20 Ml) Confirm Administered Dose 200 mg .ROUTE .STK-MED ONE Stop: 09/21/16 16:30 Sodium Chloride (Saline Flush) 10 ml FLUSH ASDIRECTED PRN PRN Reason: Keep Vein Open Last Admin: 09/20/16 17:34 Dose: 10 ml Sodium Chloride (Normal Saline) Confirm Administered Dose 50 ml .ROUTE .STK-MED ONE Stop: 09/21/16 14:47 Temazepam (Restoril) 7.5 mg PO BEDTIME PRN PRN Reason: Insomnia Last Admin: 09/22/16 21:08 Dose: 7.5 mg Trazodone HCl (Trazodone) 50 mg PO ONETIME PRN PRN Reason: Sleep Last Admin: 09/20/16 21:37 Dose: 50 mg Triamterene/HCTZ (Maxzide 25-37.5 Mg) 1 each PO DAILY [facility] Last Admin: 09/23/16 08:46 Dose: 1 each - Exam General: Reports: alert, oriented, cooperative, no acute distress HEENT: Reports: Pupils equal, Pupils reactive, EOMI, Mucous membr. moist/pink Neck: Reports: supple Lungs: Reports: Clear to auscultation, Normal respiratory effort Cardiovascular: Reports: regular rate, regular rhythm Skin: Reports: warm, dry Wound/Incisions: Reports: dressing dry and intact Psy/Mental Status: Reports: alert, normal affect, normal mood *Q Meaningful Use (DIS) - VTE *Q VTE Criteria *Q: - Stroke *Q Stroke Criteria *Q: - AMI *Q AMI Criteria *Q: <Ashlyn Choudhary - Last Filed: 10/11/16 10:56> Discharge Summary - Hospital Course Free Text/Narrative:: See operative note for device information; as above for hospital course. - Discharge Diagnosis/Problem(s) (1) Bradycardia SNOMED Code(s): 18911323 ICD Code: R00.1 - BRADYCARDIA, UNSPECIFIED Status: Acute Priority: High (2) Dizziness SNOMED Code(s): 498989314, 696734248 ICD Code: R42 - DIZZINESS AND GIDDINESS Status: Acute Priority: High (3) Generalized weakness SNOMED Code(s): 20537898 ICD Code: R53.1 - WEAKNESS Status: Chronic Priority: High (4) Syncope SNOMED Code(s): 422929131 ICD Code: R55 - SYNCOPE AND COLLAPSE Status: Acute Priority: High (5) Atypical chest pain SNOMED Code(s): 353971438 ICD Code: R07.89 - OTHER CHEST PAIN Status: Acute Priority: Medium - Patient Summary/Data Consults: Consultations 09/21/16 09:35 Consult to Physician [CONS] Routine - Patient Data Vitals - Most Recent: Last Vital Signs Temp 36.3 C 09/23/16 11:26 Pulse 60 09/23/16 11:26 Resp 18 09/23/16 11:26 BP 125/78 09/23/16 11:26 Pulse Ox 99 09/23/16 11:26 Med Orders - Current: Current Medications Discontinued Medications Artificial Tears (Isopto Tears 0.5% Ophth Soln) 0 ml EYEBOTH DAILY [facility] Last Admin: 09/23/16 08:46 Dose: 1 drop Calcium Carbonate/Glycine (Tums) 1,000 mg PO TID PRN PRN Reason: Indigestion Last Admin: 09/21/16 22:09 Dose: 1,000 mg Famotidine (Pepcid) 20 mg PO BID [facility] Last Admin: 09/21/16 08:41 Dose: 20 mg Famotidine (Pepcid) 20 mg PO DAILY [facility] Last Admin: 09/23/16 08:46 Dose: 20 mg Fentanyl (Sublimaze) 50 mcg IVPUSH Q5M PRN PRN Reason: pain Stop: 09/21/16 18:00 Last Admin: 09/21/16 17:35 Dose: 50 mcg Fentanyl (Sublimaze) Confirm Administered Dose 100 mcg .ROUTE .STK-MED ONE Stop: 09/21/16 12:50 Flunisolide (Nasalide Nasal [place]) 0 ml NASBOTH Q12H [facility] Last Admin: 09/23/16 08:46 Dose: 2 spray Cefazolin Sodium/Dextrose 2 gm (/ Premix) 50 mls @ 100 mls/hr IV ONETIME ONE Stop: 09/21/16 19:41 Last Admin: 09/21/16 20:25 Dose: 100 mls/hr Magnesium Sulfate 2 gm/ Premix 50 mls @ 25 mls/hr IV ONETIME ONE Stop: 09/21/16 22:38 Last Admin: 09/21/16 21:30 Dose: 25 mls/hr Ketorolac Tromethamine (Toradol) 15 mg IVPUSH Q6H PRN PRN Reason: Pain Stop: 09/26/16 22:50 Last Admin: 09/22/16 21:08 Dose: 15 mg Levothyroxine Sodium (Synthroid) 50 mcg PO ACBRK [facility] Last Admin: 09/23/16 07:30 Dose: 50 mcg Lidocaine HCl (Lidocaine 1%) Confirm Administered Dose 4 ml .ROUTE .STK-MED ONE Stop: 09/21/16 15:53 Lidocaine/Epinephrine (Xylocaine 1% With Epinephrine 1:100,000) Confirm Administered Dose 20 ml .ROUTE .STK-MED ONE Stop: 09/21/16 14:47 Last Admin: 09/21/16 17:00 Dose: 23 ml Lidocaine/Epinephrine (Xylocaine 1% With Epinephrine 1:100,000) Confirm Administered Dose 20 ml .ROUTE .STK-MED ONE Stop: 09/21/16 16:48 Magnesium Hydroxide (Milk Of Magnesia) 30 ml PO ONETIME ONE Stop: 09/22/16 07:31 Last Admin: 09/22/16 08:28 Dose: 30 ml Metoprolol Tartrate (Lopressor) 12.5 mg PO Q12HR [facility] Last Admin: 09/23/16 08:46 Dose: 12.5 mg Morphine Sulfate (Morphine) 2 mg IVPUSH Q4H PRN PRN Reason: Pain Non-Formulary Medication (Melatonin) 9 mg PO BEDTIME [facility] Last Admin: 09/20/16 22:55 Dose: Not Given Ondansetron HCl (Zofran) 4 mg IVPUSH ONETIME PRN PRN Reason: Nausea/Vomiting Stop: 09/21/16 18:00 Propofol (Diprivan 20 Ml) Confirm Administered Dose 200 mg .ROUTE .STK-MED ONE Stop: 09/21/16 12:50 Propofol (Diprivan 20 Ml) Confirm Administered Dose 200 mg .ROUTE .STK-MED ONE Stop: 09/21/16 16:30 Sodium Chloride (Saline Flush) 10 ml FLUSH ASDIRECTED PRN PRN Reason: Keep Vein Open Last Admin: 09/20/16 17:34 Dose: 10 ml Sodium Chloride (Normal Saline) Confirm Administered Dose 50 ml .ROUTE .STK-MED ONE Stop: 09/21/16 14:47 Temazepam (Restoril) 7.5 mg PO BEDTIME PRN PRN Reason: Insomnia Last Admin: 09/22/16 21:08 Dose: 7.5 mg Trazodone HCl (Trazodone) 50 mg PO ONETIME PRN PRN Reason: Sleep Last Admin: 09/20/16 21:37 Dose: 50 mg Triamterene/HCTZ (Maxzide 25-37.5 Mg) 1 each PO DAILY [facility] Last Admin: 09/23/16 08:46 Dose: 1 each *Q Meaningful Use (DIS) - VTE *Q VTE Criteria *Q: - Stroke *Q Stroke Criteria *Q: - AMI *Q AMI Criteria *Q:
== END 2016-09-23 13:35 | disposition home or self-care (01) | DRG 310 ==
LOC: JD.ED 16:00 → INTOOBSV 18:38 → JD.MS 18:38 → UNDOADMOB 18:38 → JD.MS 18:38 → INTOOBSV 09-22 10:03 → OBSVTOIN 09-22 10:03 → UNDODISIN 09-23 13:35
PROVIDERS: ADMIT Internal Medicine Cardiovascular Disease; ATTEND Internal Medicine Cardiovascular Disease
DX: I49.5 Sick sinus syndrome (principal); R55 Syncope and collapse; R53.1 Weakness; R00.1 Bradycardia, unspecified; R07.89 Other chest pain; E78.00 Pure hypercholesterolemia, unspecified; K21.9 Gastro-esophageal reflux disease without esophagitis; E03.9 Hypothyroidism, unspecified; F41.9 Anxiety disorder, unspecified; F32.9 Major depressive disorder, single episode, unspecified; M19.90 Unspecified osteoarthritis, unspecified site; R32 Unspecified urinary incontinence; Z86.14 Personal history of Methicillin resistant Staphylococcus aureus infection; Z79.899 Other long term (current) drug therapy; Z88.6 Allergy status to analgesic agent
CPT/HCPCS: 33206; 36415 ×3; 71010 ×2; 76000; 80048 ×2; 80053; 80061; 83735; 84443; 84484; 85025 ×3; 85610; 85730; 87641; 93005 ×4; 93306; 99285; A9270 ×13; C1785; C1898 ×2; J0690; J1885; J3010 ×2; J7050; 00530; 99284; G0378; J2704; J3475

== ENCOUNTER 2017-10-16 12:17 | Emergency (ER) | payer MEDICARE, BC ==
[2017-10-16 12:38] VITALS: BP 149/100
--- NOTE | 2017-10-16 13:28 | EDM.PDOC ---
ED HPI GENERAL MEDICAL PROBLEM - General Chief Complaint: Syncope Stated Complaint: SYCOPE Time Seen by Provider: 10/16/17 12:53 Source of Information: Reports: Patient History Limitations: Reports: No Limitations - History of Present Illness INITIAL COMMENTS - FREE TEXT/NARRATIVE: 77-year-old female comes in today after fainting at [employer]oda[employer] while kneeling. The syncopal episode was witnessed by Dr. Kalyan Vasquez who brought her in today. She states that there was a brief loss of consciousness and she does not remember the fall but she did feel "fuzzy" before the fall happened. She admits to feeling "off-kilter" and has had a feeling of "heaviness" like heartburn in her chest for the past 2 days. Patient reports she did have similar symptoms about 2 years ago, fell at least 2 other times, and she has "head tinglings" for the past 2-3 years. She is on a pacemaker for low heart rate. She is not having any chest pain, nausea, vomiting, fever, chills, cough. No other concerns at this time. 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 Casey next Saturday and will be seeing her PCP Dr. Gonzalez in March. - Related Data Allergies Allergy/AdvReac Type Severity Reaction Status Date / Time No Known Allergies Allergy Verified 10/16/17 12:35 Home Meds: Home Meds Levothyroxine [Synthroid] 50 mcg PO ACBRK 01/29/14 [History] Carboxymethylcellulose Sodium [Refresh Tears] 1 drop EYEBOTH DAILY 09/24/15 [ History] Melatonin 10 mg PO BEDTIME 11/22/15 [History] Vit C/E/Zn/Coppr/Lutein/Zeaxan [Preservision Areds 2 Softgel] 1 tab PO DAILY [History] Ranitidine HCl [Zantac] 300 mg PO BID 02/28/16 [History] Fluticasone Propionate [Flonase] 2 spray INH DAILY 09/20/16 [History] Lavender Oil [Lavender Fragrance Oil] 1 cap PO BID PRN 09/20/16 [History] Calcium Carbonate [Tums] 1,000 mg PO TID #90 tab.chew 09/23/16 [Rx] Ibuprofen [Motrin] 600 mg PO Q8H PRN #21 tablet 09/23/16 [Rx] Cholecalciferol (Vitamin D3) [Vitamin D3] 5,000 units PO MOWEFR 09/25/16 [ History] Escitalopram [Lexapro] 5 mg PO DAILY 09/25/16 [History] Metoprolol Tartrate [Lopressor] 25 mg PO Q12HR 10/01/16 [History] Vitamin B Complex 1 cap PO DAILY 10/01/16 [History] Past Medical History HEENT History: Reports: Impaired Vision Other HEENT History: Wears glasses Cardiovascular History: Reports: High Cholesterol, Pacemaker, Other (See Below) Other Cardiovascular History: loop recorder Gastrointestinal History: Reports: Colon Polyp, GERD Genitourinary History: Reports: Urinary Incontinence CLINICAL INSTRUCTOR History: Reports: , Spontaneous Musculoskeletal History: Reports: Arthritis Neurological History: Reports: Concussion Psychiatric History: Reports: Anxiety, Depression Endocrine/Metabolic History: Reports: Hypothyroidism - Infectious Disease History Infectious Disease History: Reports: Chicken Pox, Measles - Past Surgical History HEENT Surgical History: Reports: Cataract Surgery, Naso-Sinus Surgery GI Surgical History: Reports: Other (See Below) Female Surgical History: Reports: D&C, Hysterectomy, Salpingo-Oophorectomy Endocrine Surgical History: Reports: None Neurological Surgical History: Reports: Lumbar Spine Musculoskeletal Surgical History: Reports: Arthroscopic Knee Social & Family History - Family History Family Medical History: Noncontributory - Tobacco Use Smoking Status *Q: Never Smoker Second Hand Smoke Exposure: No - Caffeine Use Caffeine Use: Reports: None Caffeine Use Comment: rarely with upset stomache and occassionally chamomile tea - Alcohol Use Days Per Week of Alcohol Use: 0 - Recreational Drug Use Recreational Drug Use: No Drug Use in Last 12 Months: No - Living Situation & Occupation Living situation: Reports: , Alone Occupation: Retired ED ROS GENERAL - Review of Systems Review Of Systems: See Below Constitutional: Reports: No Symptoms. Denies: Fever, Chills, Weakness, Fatigue HEENT: Reports: No Symptoms. Denies: Rhinitis, Sinus Problem Respiratory: Reports: No Symptoms. Denies: Shortness of Breath, Wheezing, Cough Cardiovascular: Reports: Lightheadedness (x2 days), Other ("Heaviness like heartburn" x 2 days). Denies: Chest Pain Endocrine: Reports: No Symptoms GI/Abdominal: Reports: No Symptoms. Denies: Diarrhea, Nausea, Vomiting : Reports: No Symptoms. Denies: Dysuria Musculoskeletal: Reports: No Symptoms Skin: Reports: No Symptoms Neurological: Reports: Dizziness, Syncope. Denies: Headache, Trouble Speaking, Difficulty Walking, Change in Speech Psychiatric: Reports: No Symptoms Hematologic/Lymphatic: Reports: No Symptoms Immunologic: Reports: No Symptoms - Physical Exam Exam: See Below Exam Limited By: No Limitations General Appearance: Alert, WD/WN, No Apparent Distress Eye Exam: Bilateral Eye: EOMI, Normal Inspection, PERRL Ears: Normal External Exam, Other (Hearing aids) Nose: Normal Inspection Throat/Mouth: Normal Inspection Head Exam: Atraumatic, Normocephalic Neck: Normal Inspection, Supple, Non-Tender, Full Range of Motion Respiratory/Chest: No Respiratory Distress, Lungs Clear, Normal Breath Sounds, Chest Non-Tender. No: Crackles, Rales, Rhonchi, Wheezing Cardiovascular: Normal Peripheral Pulses, Regular Rate, Rhythm, Other (Pacemaker ) GI/Abdominal: Normal Bowel Sounds, Soft, Non-Tender, No Organomegaly Neuro Exam (Abbreviated): Alert, Oriented, Normal Cognition Back Exam: Normal Inspection, Full Range of Motion Extremities: Normal Inspection, Normal Range of Motion Psychiatric: Normal Affect, Normal Mood Skin Exam: Warm, Dry, Intact, Normal Color Course - Vital Signs Last Recorded V/S: Last Vital Signs Temp 97.1 F 10/16/17 12:36 Pulse 97 10/16/17 12:36 Resp 18 10/16/17 12:36 BP 149/100 H 10/16/17 12:36 Pulse Ox 97 10/16/17 12:36 Orthostatic Blood Pressure [ 144/97 Standing] Orthostatic Blood Pressure [ 150/90 Sitting] Orthostatic Blood Pressure [ 146/86 Supine] - Orders/Labs/Meds Labs: Laboratory Tests 10/16/17 10/16/17 10/16/17 Range/Units 12:55 12:55 12:55 WBC 6.16 (3.98-10.04) K/mm3 RBC 4.31 (3.98-5.22) M/mm3 Hgb 12.8 (11.2-15.7) gm/L Hct 36.8 (34.1-44.9) % MCV 85.4 (79.4-94.8) fl MCH 29.7 (25.6-32.2) pg MCHC 34.8 (32.2-35.5) g/dl RDW Std Deviation 43.2 (36.4-46.3) fL Plt Count 221 (182-369) K/mm3 MPV 9.5 (9.4-12.3) fl Neutrophils % (Manual) 66 H (40-60) % Band Neutrophils % 1 (0-10) % Lymphocytes % (Manual) 29 (20-40) % Atypical Lymphs % 0 % Monocytes % (Manual) 4 (2-10) % Eosinophils % (Manual) 0 L (0.7-5.8) % Basophils % (Manual) 0 L (0.1-1.2) Platelet Estimate Adequate RBC Morph Comment Normal PT 32.3 H (8.0-13.0) SECONDS INR 2.99 Sodium 131 L (136-145) mEq/L Potassium 4.3 (3.5-5.1) mEq/L Chloride 94 L (98-107) mEq/L Carbon Dioxide 28 (21-32) mEq/L Anion Gap 13.3 (5-15) BUN 16 (7-18) mg/dL Creatinine 0.9 (0.55-1.02) mg/dL Est Cr Clr Drug Dosing 2.56 mL/min Estimated GFR (MDRD) > 60 (>60) mL/min BUN/Creatinine Ratio 17.8 (14-18) Glucose 91 (83-115) mg/dL Calcium 9.1 (8.5-10.1) mg/dL Total Bilirubin 0.4 (0.2-1.0) mg/dL AST 26 (15-37) U/L ALT 30 (14-59) U/L Alkaline Phosphatase 60 (46-116) U/L Troponin I < 0.017 (0.00-0.056) ng/mL Total Protein 7.1 (6.4-8.2) g/dl Albumin 3.3 L (3.4-5.0) g/dl Globulin 3.8 gm/dL Albumin/Globulin Ratio 0.9 L (1-2) - Re-Assessments/Exams Free Text/Narrative Re-Assessment/Exam: 10/16/17 13:38 Orthostatic Vitals: * 146/86, 70 * 150/90, 76 * 144/97, 76 10/17/17 14:04. Labs came back relatively normal. EKG was good. Vitals stable while in ED, no discomfort. sinus rythm, no ectopy, discharge instr. as documented. Departure - Departure Time of Disposition: 15:39 Disposition: Home, Self-Care 01 Condition: Fair Clinical Impression: Syncope Qualifiers: Syncope type: vasovagal syncope Qualified Code(s): R55 - Syncope and collapse - Discharge Information Instructions: Syncope, [id number] Referrals: Charis Desir MD [Primary Care Provider] - Forms: ED Department Discharge Additional Instructions: Drink plenty of water to maintain hydration, eat regular meals and snacks, continue current medications as prescribed, see your Manager Of Sustainability October 24 as planned. Return to ED as needed if symptoms worsening in any way.
--- NOTE | 2017-10-16 15:46 | CR ---
Chest: Portable view of the chest was obtained. Comparison: Prior chest x-ray of 10/01/16. Heart is enlarged. Tortuous thoracic aorta is seen. Pacemaker is noted. Lungs are clear with no acute parenchymal densities. Previous study showed blunting of the costophrenic angles which is not seen on current study. Scoliosis and mild degenerative change is noted within the spine. Impression: 1. Stable cardiomegaly. 2. Other findings as noted above. Nothing acute is appreciated. Diagnostic code #2
== END 2017-10-16 15:45 | disposition home or self-care (01) ==
LOC: JD.ED 12:17
DX: R55 Syncope and collapse (principal); E03.9 Hypothyroidism, unspecified; E78.00 Pure hypercholesterolemia, unspecified; F32.9 Major depressive disorder, single episode, unspecified; Z79.899 Other long term (current) drug therapy
CPT/HCPCS: 36415; 71045; 71045-26; 80053; 84484; 85025; 85610; 93005; 93010; 99284-25

== ENCOUNTER 2018-12-09 11:19 | Emergency (ER) | payer MEDICARE, BC ==
--- NOTE | 2018-12-09 12:59 | EDM.PDOC ---
ED HPI GENERAL MEDICAL PROBLEM - General Chief Complaint: Cardiovascular Problem Stated Complaint: DIZZY, HIGH BLOOD PRESSURE Time Seen by Provider: 12/09/18 12:07 Source of Information: Reports: Patient, RN Notes Reviewed History Limitations: Reports: No Limitations - History of Present Illness INITIAL COMMENTS - FREE TEXT/NARRATIVE: The patient states that she has had sinus pressure for the past 3 days. She has a history of chronic/recurrent sinusitis. She reports that she stopped taking her Flonase 3 days ago. The patient also reports a headache felt on the top of her head, a tingling sensation, for years. She also reports dizziness, a lightheaded sensation, also for years. She checked her blood pressure today when she was feeling lightheaded, and found it to be 130-something/98. When she checked it a short time later, it was up to 155/95. The patient denies having any recent fever, chills, nausea, vomiting, constipation, or urinary symptoms. She states that she had some watery diarrhea yesterday, but reports that she often gets that, due to taking a magnesium supplement. Here in the ED, the patient's initial BP is found to be 169/91. Her oxygen saturation is 99-100% on room air. The patient's PCP is Dr. Arciniega. Headache Pain Score (Numeric/FACES): 8 - Related Data Allergies Allergy/AdvReac Type Severity Reaction Status Date / Time No Known Allergies Allergy Verified 12/09/18 11:37 Home Meds: Home Meds Levothyroxine [Synthroid] 50 mcg PO ACBRK 01/29/14 [History] Carboxymethylcellulose Sodium [Refresh Tears] 1 drop EYEBOTH DAILY 09/24/15 [ History] Melatonin 10 mg PO BEDTIME 11/22/15 [History] Vit C/E/Zn/Coppr/Lutein/Zeaxan [Preservision Areds 2 Softgel] 1 tab PO DAILY [History] Lavender Oil [Lavender Fragrance Oil] 1 cap PO BID PRN 09/20/16 [History] Cholecalciferol (Vitamin D3) [Vitamin D3] 5,000 units PO MOWEFR 09/25/16 [ History] Metoprolol Tartrate [Lopressor] 25 mg PO Q12HR 10/01/16 [History] Vitamin B Complex 1 cap PO DAILY 10/01/16 [History] Bee Pollen 1,000 mg PO BID 12/09/18 [History] Calcium Citrate 600 mg PO DAILY 12/09/18 [History] Hesperidin/Diosmin [Flogen 900 mg Caplet] 1 each PO DAILY 12/09/18 [History] Rivaroxaban [Xarelto] 20 mg PO DAILY 12/09/18 [History] Ubidecarenone [Co Q10] 100 mg PO DAILY 12/09/18 [History] Past Medical History HEENT History: Reports: Impaired Vision Other HEENT History: Wears glasses Cardiovascular History: Reports: Afib, High Cholesterol, Hypertension Gastrointestinal History: Reports: Colon Polyp, GERD Genitourinary History: Reports: Urinary Incontinence 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: , 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 Musculoskeletal History: Reports: Arthritis Psychiatric History: Reports: Anxiety (untreated), Depression (untreated) Endocrine/Metabolic History: Reports: Hypothyroidism - Infectious Disease History Infectious Disease History: Reports: Chicken Pox, Measles - Past Surgical History HEENT Surgical History: Reports: Cataract Surgery, Naso-Sinus Surgery (x 3) Cardiovascular Surgical History: Reports: Pacer, Other (See Below) (Loop recorder) GI Surgical History: Reports: Colonoscopy (x 2), EGD (x 3 or 4), Other (See Below) Female Surgical History: Reports: D&C (x 2), Hysterectomy (complete), Salpingo-Oophorectomy Neurological Surgical History: Reports: Lumbar Spine Musculoskeletal Surgical History: Reports: Arthroscopic Knee (left) Social & Family History - Family History Family Medical History: Noncontributory HEENT: Reports: None Cardiac: Reports: CAD Respiratory: Reports: None GI: Reports: None : Reports: None OBGYN: Reports: None Musculoskeletal: Reports: None Neurological: Reports: None Psychiatric: Reports: None Endocrine/Metabolic: Reports: None Hematologic: Reports: None Immunologic: Reports: None Oncologic: Reports: Ovarian - Tobacco Use Smoking Status *Q: Never Smoker - Caffeine Use Caffeine Use: Reports: Tea Caffeine Use Comment: rarely with upset stomache and occassionally chamomile tea - Alcohol Use Alcohol Use History: Yes Alcohol Use Frequency: Rarely - Recreational Drug Use Recreational Drug Use: No - Living Situation & Occupation Living situation: Reports: , Alone Occupation: Retired ED ROS GENERAL - Review of Systems Review Of Systems: ROS reveals no pertinent complaints other than HPI. ED EXAM, GENERAL - Physical Exam Exam: See Below Exam Limited By: No Limitations General Appearance: Alert, WD/WN, No Apparent Distress Eye Exam: Bilateral Eye: EOMI, Normal Inspection Ears: Normal External Exam, Hearing Loss Nose: Normal Inspection Throat/Mouth: Normal Inspection, Normal Lips, Normal Voice, No Airway Compromise Head: Atraumatic, Normocephalic Neck: Normal Inspection, Full Range of Motion Respiratory/Chest: No Respiratory Distress, Lungs Clear, Normal Breath Sounds, No Accessory Muscle Use Cardiovascular: Normal Peripheral Pulses, Regular Rate, Rhythm, No Gallop, No JVD, No Murmur, No Rub Peripheral Pulses: 4+: Radial (L), Radial (R) GI/Abdominal: Normal Bowel Sounds, Soft, Non-Tender, No Organomegaly, No Distention, No Abnormal Bruit, No Mass (Female) Exam: Deferred Rectal (Female) Exam: Deferred Back Exam: Normal Inspection, Full Range of Motion, NT Extremities: Normal Inspection, Normal Range of Motion, No Pedal Edema, Normal Capillary Refill Neurological: Alert, Oriented, CN II-XII Intact, Normal Cognition, No Motor/ Sensory Deficits Psychiatric: Anxious Skin Exam: Warm, Dry, Intact, Normal Color, No Rash Course - Vital Signs Last Recorded V/S: Last Vital Signs Temp 36.3 C 12/09/18 11:55 Pulse 109 H 12/09/18 13:06 Resp 16 12/09/18 13:06 BP 150/98 H 12/09/18 13:06 Pulse Ox 100 12/09/18 13:06 - Re-Assessments/Exams Free Text/Narrative Re-Assessment/Exam: 12/09/18 12:50 The patient's lightheadedness may be related to ethmoid sinusitis, but could also be related to anxiety and hyperventilation, and I suspect that her head tingling is related to hyperventilation, as it is noted that her oxygen saturation is 100% on room air. The patient states that she stopped taking Lexapro a few months ago, because she did not think that it was doing much. Going forward, I'm going to recommend that she follow-up with her PCP to discuss restarting it. In addition, the patient takes numerous multivitamins which are likely of no benefit to her whatsoever. I am recommending that she discontinue them. Lastly, I advised the patient that she not check her blood pressure unless she is under restful conditions. Departure - Departure Time of Disposition: 12:52 Disposition: Home, Self-Care 01 Condition: Good Clinical Impression: Hyperventilation syndrome, Anxiety, Elevated blood pressure reading Instructions: Hypertension, [id number] Referrals: Charis Desir MD [Primary Care Provider] - Forms: ED Department Discharge Additional Instructions: You were seen in the emergency room for elevated blood pressure associated with worse than usual sinus pressure and worse than usual tingling to the top of your head, along with chronic dizziness. On examination, your oxygen saturation was found to be 100% on room air, indicating that you were hyperventilating. This is most likely due to your untreated anxiety disorder. We recommend that you follow-up with your PCP, Dr. Arciniega, to discuss restarting Lexapro, or some other anti-anxiety medicine. As discussed, we recommend that you continue to take your prescription medications as prescribed, along with calcium with vitamin D, if recommended by Dr. Arciniega, otherwise, we recommend that you discontinue the other vitamins and minerals, as they have been shown to be of no medical benefit. As discussed, you should only check your blood pressure if you are under restful conditions, meaning that you are sitting quietly for at least 5 and preferably 15 minutes, that you are not in pain, you are not anxious, and you are not ill. Check your blood pressure 2 to 3 times a week, write the numbers down, and show them to Dr. Arciniega when you next visit her. If any other problems, please do not hesitate to return to the ER.
[2018-12-09 13:16] VITALS: BP 150/98
== END 2018-12-09 13:06 | disposition home or self-care (01) ==
LOC: JD.ED 11:19
DX: F45.8 Other somatoform disorders (principal); F41.9 Anxiety disorder, unspecified; I48.91 Unspecified atrial fibrillation; E78.00 Pure hypercholesterolemia, unspecified; I10 Essential (primary) hypertension; F32.9 Major depressive disorder, single episode, unspecified; E03.9 Hypothyroidism, unspecified; Z79.899 Other long term (current) drug therapy; Z79.01 Long term (current) use of anticoagulants
CPT/HCPCS: 99283

== ENCOUNTER 2019-04-24 10:53 | Emergency (ER) | payer MEDICARE, BC ==
[2019-04-24 11:04] VITALS: BP 144/95
--- NOTE | 2019-04-24 11:21 | EDM.PDOC ---
ED HPI GENERAL MEDICAL PROBLEM - General Chief Complaint: Abdominal Pain Stated Complaint: HEART BURN,UPSET STOMACH Time Seen by Provider: 04/24/19 11:11 Source of Information: Reports: Patient History Limitations: Reports: No Limitations - History of Present Illness INITIAL COMMENTS - FREE TEXT/NARRATIVE: 78 year old female presents for evaluation of heartburn and nausea. Patient reports that she always has heartburn and upset stomach. She was started on fluoxetine 18 days ago which she stopped on Saturday. She feels worsened her heartburn. She states that she always has nausea. Upon arrival to the ER she reports that the nausea and heartburn are minimal at this time. She did try some Zantac but did not feel that this gave her any relief. She reports pain in the substernal area up into her throat. No radiation to her back, neck or arms. She states that last night was particularly bad for the heartburn. She reports associated symptoms of lightheadedness but states this is chronic and she has not appreciated change. No vomiting or syncope. Cardiac history remarkable for A. fib and a pacemaker. She sees Dr. Casey in [place]. She is to see Dr. Casey on May 05 next. Primary care providers Dr. brumfield Abdominal Pain Score (Numeric/FACES): 5 - Related Data Allergies Allergy/AdvReac Type Severity Reaction Status Date / Time No Known Allergies Allergy Verified 04/24/19 11:04 Home Meds: Home Meds Levothyroxine [Synthroid] 50 mcg PO ACBRK 01/29/14 [History] Carboxymethylcellulose Sodium [Refresh Tears] 1 drop EYEBOTH DAILY 09/24/15 [ History] Melatonin 10 mg PO BEDTIME 11/22/15 [History] Vit C/E/Zn/Coppr/Lutein/Zeaxan [Preservision Areds 2 Softgel] 1 tab PO DAILY [History] Lavender Oil [Lavender Fragrance Oil] 1 cap PO BID PRN 09/20/16 [History] Cholecalciferol (Vitamin D3) [Vitamin D3] 5,000 units PO MOWEFR 09/25/16 [ History] Metoprolol Tartrate [Lopressor] 50 mg PO Q12HR 10/01/16 [History] Vitamin B Complex 1 cap PO DAILY 10/01/16 [History] Bee Pollen 1,000 mg PO BID 12/09/18 [History] Calcium Citrate 600 mg PO DAILY 12/09/18 [History] Hesperidin/Diosmin [Flogen 900 mg Caplet] 1 each PO DAILY 12/09/18 [History] Rivaroxaban [Xarelto] 20 mg PO DAILY 12/09/18 [History] Ubidecarenone [Co Q10] 100 mg PO DAILY 12/09/18 [History] FLUoxetine [PROzac] 10 mg PO DAILY 04/24/19 [History] Omeprazole 20 mg PO DAILY #14 tablet. 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 Musculoskeletal History: Reports: Arthritis Neurological History: Reports: Concussion Psychiatric History: Reports: Anxiety, Depression Endocrine/Metabolic History: Reports: Hypothyroidism Hematologic History: Reports: None Immunologic History: Reports: None Oncologic (Cancer) History: Reports: None Dermatologic History: Reports: None - Infectious Disease History Infectious Disease History: Reports: Chicken Pox, Measles - Past Surgical History Head Surgeries/Procedures: Reports: None HEENT Surgical History: Reports: Cataract Surgery, Naso-Sinus Surgery Cardiovascular Surgical History: Reports: Pacer, Other (See Below) GI Surgical History: Reports: Colonoscopy, EGD, Other (See Below) Female Surgical History: Reports: D&C, Hysterectomy, Salpingo-Oophorectomy Neurological Surgical History: Reports: Lumbar Spine Musculoskeletal Surgical History: Reports: Arthroscopic Knee Social & Family History - Family History Family Medical History: Noncontributory HEENT: Reports: None Cardiac: Reports: CAD Respiratory: Reports: None GI: Reports: None : Reports: None OBGYN: Reports: None Musculoskeletal: Reports: None Neurological: Reports: None Psychiatric: Reports: None Endocrine/Metabolic: Reports: None Hematologic: Reports: None Immunologic: Reports: None Oncologic: Reports: Ovarian - Tobacco Use Smoking Status *Q: Never Smoker Second Hand Smoke Exposure: No - Caffeine Use Caffeine Use: Reports: Soda, Tea Caffeine Use Comment: rarely with upset stomache and occassionally chamomile tea - Recreational Drug Use Recreational Drug Use: No - Living Situation & Occupation Living situation: Reports: , Alone Occupation: Retired ED ROS GENERAL - Review of Systems Review Of Systems: See Below Respiratory: Denies: Shortness of Breath Cardiovascular: Reports: Chest Pain ("heartburn" ), Lightheadedness (chronic) GI/Abdominal: Reports: Nausea, Other (reprots heartburn). Denies: Vomiting Neurological: Denies: Syncope ED EXAM, GI/ABD - Physical Exam Exam: See Below Exam Limited By: No Limitations General Appearance: Alert, WD/WN, No Apparent Distress Throat/Mouth: Normal Inspection, Normal Lips, Normal Voice, No Airway Compromise Respiratory/Chest: No Respiratory Distress, Lungs Clear, Normal Breath Sounds Cardiovascular: Normal Peripheral Pulses, Regular Rate, Rhythm, No Murmur Neurological: Alert, Oriented, Normal Cognition Psychiatric: Normal Affect, Normal Mood Skin Exam: Warm, Dry, Normal Color EKG INTERPRETATION EKG Date: 04/24/19 Time: 11:49 Rhythm: Other (paced rhythm) Rate (Beats/Min): 75 [place]: LAD-Left [place] Deviation P-Wave: Present QRS: Normal ST-T: Normal QT: Normal EKG Interpretation Comments: atrial paced rhythm at 75 bpm. LAD (-23 degrees) RSR' V&V2 - normal diffuse repolarization abnormality. Reviewed by myself and Dr. Johnson. Course - Vital Signs Last Recorded V/S: Last Vital Signs Temp 97.5 F 04/24/19 11:03 Pulse 85 04/24/19 11:03 Resp 15 04/24/19 11:03 BP 144/95 H 04/24/19 11:03 Pulse Ox 95 04/24/19 11:03 - Orders/Labs/Meds Orders: Active Orders 24 hr Category Date Time Status EKG 12 Lead [EKG Documentation Completion] [RC] STAT Care 04/24/19 11:43 Active Labs: Laboratory Tests 04/24/19 04/24/19 Range/Units 13:08 13:08 WBC 6.78 (3.98-10.04) K/mm3 RBC 4.25 (3.98-5.22) M/mm3 Hgb 12.2 (11.2-15.7) gm/L Hct 35.3 (34.1-44.9) % MCV 83.1 (79.4-94.8) fl MCH 28.7 (25.6-32.2) pg MCHC 34.6 (32.2-35.5) g/dl RDW Std Deviation 44.6 (36.4-46.3) fL Plt Count 260 (182-369) K/mm3 MPV 8.9 L (9.4-12.3) fl Neut % (Auto) 57.4 (34.0-71.1) % Lymph % (Auto) 29.4 (19.3-51.7) % [facility] % (Auto) 12.7 H (4.7-12.5) % Eos % (Auto) 0.4 L (0.7-5.8) Baso % (Auto) 0.1 (0.1-1.2) % Neut # (Auto) 3.89 (1.56-6.13) K/mm3 Lymph # (Auto) 1.99 (1.18-3.74) K/mm3 [facility] # (Auto) 0.86 H (0.24-0.36) K/mm3 Eos # (Auto) 0.03 L (0.04-0.36) K/mm3 Baso # (Auto) 0.01 (0.01-0.08) K/mm3 Sodium 124 L (136-145) mEq/L Potassium 4.8 (3.5-5.1) mEq/L Chloride 88 L (98-107) mEq/L Carbon Dioxide 26 (21-32) mEq/L Anion Gap 14.8 (5-15) BUN 15 (7-18) mg/dL Creatinine 0.6 (0.55-1.02) mg/dL Est Cr Clr Drug Dosing 54.61 mL/min Estimated GFR (MDRD) > 60 (>60) mL/min BUN/Creatinine Ratio 25.0 H (14-18) Glucose 98 (83-115) mg/dL Calcium 8.8 (8.5-10.1) mg/dL Total Bilirubin 0.8 (0.2-1.0) mg/dL AST 20 (15-37) U/L ALT 21 (14-59) U/L Alkaline Phosphatase 68 (46-116) U/L Troponin I < 0.017 (0.00-0.056) ng/mL Total Protein 7.0 (6.4-8.2) g/dl Albumin 3.4 (3.4-5.0) g/dl Globulin 3.6 gm/dL Albumin/Globulin Ratio 0.9 L (1-2) Lipase 255 (73-393) U/L Meds: Medications Discontinued Medications Generic Name Dose Route Start Last Admin Trade Name Pierce PRN Reason Stop Dose Admin Al Hydroxide/Mg Hydroxide 30 0 ml 04/24/19 13:20 04/24/19 13:33 ml/ Lidocaine HCl 15 ml PO 04/24/19 13:21 45 ml ONETIME ONE Administration - Radiology Interpretation Free Text/Narrative:: Chest: Two views of the chest were obtained. Comparison: Previous chest x-ray of 10/16/17. Heart size at the upper limits of normal. Tortuous thoracic aorta is seen. Pacemaker is noted. Lungs are clear with no acute parenchymal change. Bony structures show scoliosis within the spine. Impression: 1. Findings as noted above. Nothing acute is appreciated on two-view chest x- ray. 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 GI cocktail ordered. 04/24/19 14:43 reviewed the labs, ekg and imaging with the patient. Informed of low sodium. appears to be chronic. Is likely causing her nonspecific brain fogginess, tingling that she is experiencing. She states that she drinks plenty of water and watches her salt. I informed her she needs to drink actually more Gatorade and Powerade. No more than 8 8 ounce glasses of water and a day and she needs to actually use salt. She expresses understanding of this. Recommend follow-up in the clinic as planned. Will start on omeprazole for the heartburn. Discharge instructions as documented. Departure - Departure Time of Disposition: 14:45 Disposition: Home, Self-Care 01 Condition: Fair Clinical Impression: Hyponatremia GERD (gastroesophageal reflux disease) Qualifiers: Esophagitis presence: esophagitis presence not specified Qualified Code(s): K21.9 - Gastro-esophageal reflux disease without esophagitis - Discharge Information *PRESCRIPTION DRUG MONITORING PROGRAM REVIEWED*: No *COPY OF PRESCRIPTION DRUG MONITORING REPORT IN PATIENT SU: No Prescriptions: Omeprazole 20 mg PO DAILY #14 tablet. Instructions: Heartburn, [id number] Referrals: Charis Desir MD [Primary Care Provider] - Forms: ED Department Discharge Additional Instructions: recommend drinking Gatorade, powered. you can splurge on salt. do not drink more than 8 8ounce glasses of water per day. take the omeprazole one tab daily. follow-up with PCP next week as planned. pleases return to the ER should your symptoms change or worsen. - My Orders Last 24 Hours: My Active Orders 04/24/19 11:43 EKG 12 Lead [EKG Documentation Completion] [RC] STAT - Assessment/Plan Last 24 Hours: My Active Orders 04/24/19 11:43 EKG 12 Lead [EKG Documentation Completion] [RC] STAT
[2019-04-24] MEDS ORDERED: Alum Hydrox/Mag Hydrox/Simeth 30 ML, Lidocaine 2% 15 ML PO ONE ×2 (13:20)
--- NOTE | 2019-04-24 13:21 | CR ---
Chest: Two views of the chest were obtained. Comparison: Previous chest x-ray of 10/16/17. Heart size at the upper limits of normal. Tortuous thoracic aorta is seen. Pacemaker is noted. Lungs are clear with no acute parenchymal change. Bony structures show scoliosis within the spine. Impression: 1. Findings as noted above. Nothing acute is appreciated on two-view chest x-ray. Diagnostic code #2
== END 2019-04-24 14:58 | disposition home or self-care (01) ==
LOC: JD.ED 10:53
DX: K21.9 Gastro-esophageal reflux disease without esophagitis (principal); E87.1 Hypo-osmolality and hyponatremia; E03.9 Hypothyroidism, unspecified; I10 Essential (primary) hypertension; F41.9 Anxiety disorder, unspecified; F32.9 Major depressive disorder, single episode, unspecified; Z90.710 Acquired absence of both cervix and uterus; Z90.722 Acquired absence of ovaries, bilateral; Z79.899 Other long term (current) drug therapy
CPT/HCPCS: 36415; 71046; 80053; 83690; 84484; 85025; 93005; 99284; A9270

== ENCOUNTER 2019-05-18 06:52 | Day surgery (SDC) | payer MEDICARE, BC ==
[~2019-05-18 06:52] MED LIST: Lactated Ringers 1,000 ML IV SCH; Lidocaine 1%/Sod Bicarbonate in NS 8.4% 1 ML Syringe IDERM PRN; Sodium Chloride 0.9% 10 ML Syringe FLUSH PRN
[2019-05-18] MEDS ORDERED: Propofol 200 MG/20 ML SDV ONE (07:04)
--- NOTE | 2019-05-18 07:31 | PCM.PREANE ---
Preanesthetic Assessment - Anesthesia/Transfusion/Family Hx Anesthesia History: Prior Anesthesia Without Reaction Family History of Anesthesia Reaction: No Transfusion History: No Prior Transfusion(s) - Review of Systems General: No Symptoms Pulmonary: No Symptoms Cardiovascular: Other (pacemaker for SSS, PAF, HTN, atypical chest pain, EKG atrial paced with vent bigeminy) Gastrointestinal: Other (severe heartburn) Neurological: No Symptoms, Other (feels she is off balance) Other: Reports: Easy Bruising (on , stopped on Saturday), Thyroid Problems , Depression, Anxiety - Physical Assessment NPO Status Date: 05/17/19 NPO Status Time: 22:00 Weight: 54.6 kg ASA Class: 3 Mental Status: Alert & Oriented x3 Dentition: Reports: Normal Dentition Thyro-Mental Finger Breadths: 3 Mouth Opening Finger Breadths: 3 ROM/Head Extension: Full Lungs: Clear to Auscultation, Normal Respiratory Effort Cardiovascular: Regular Rate, Regular Rhythm - Allergies Allergies/Adverse Reactions: Allergies Allergy/AdvReac Type Severity Reaction Status Date / Time No Known Allergies Allergy Verified 05/15/19 15:28 - Blood Blood Available: No Product(s) Available: None - Anesthesia Plan Pre-Op Medication Ordered: None Beta Sharri: Metoprolol Med Last Dose Date: 05/18/19 Med Last Dose Time: 06:00 - Acknowledgements Anesthesia Type Planned: MAC Pt an Appropriate Candidate for the Planned Anesthesia: Yes Alternatives and Risks of Anesthesia Discussed w Pt/Guardian: Yes Pt/Guardian Understands and Agrees with Anesthesia Plan: Yes PreAnesthesia Questionnaire HEENT History: Reports: Macular Degeneration Other HEENT History: Wears glasses Cardiovascular History: Reports: Afib, High Cholesterol, Hypertension, Pacemaker , Syncope Other Cardiovascular History: Diastolic dysfunction, frequent PVCs, sick sinus syndrome, atypical chest pain Respiratory History: Reports: None Other Respiratory History: sinus problems, does sinus washes Gastrointestinal History: Reports: GERD, Other (See Below) Other Gastrointestinal History: Esophagitis Genitourinary History: Reports: None 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 Musculoskeletal History: Reports: Osteoarthritis Neurological History: Reports: Concussion Psychiatric History: Reports: Anxiety, Depression Endocrine/Metabolic History: Reports: Hypothyroidism, Vitamin D Deficiency Hematologic History: Reports: None Immunologic History: Reports: None Oncologic (Cancer) History: Reports: None Dermatologic History: Reports: None - Infectious Disease History Infectious Disease History: Reports: Chicken Pox, Measles - Past Surgical History Head Surgeries/Procedures: Reports: None HEENT Surgical History: Reports: Cataract Surgery Cardiovascular Surgical History: Reports: None Respiratory Surgical History: Reports: None GI Surgical History: Reports: Colonoscopy, EGD Female Surgical History: Reports: Dilitation & Evacuation, Hysterectomy Endocrine Surgical History: Reports: None Neurological Surgical History: Reports: Laminectomy Musculoskeletal Surgical History: Reports: Other (See Below) Other Musculoskeletal Surgeries/Procedures:: Knee surgery Oncologic Surgical History: Reports: None Dermatological Surgical History: Reports: None - SUBSTANCE USE Smoking Status *Q: Never Smoker Recreational Drug Use History: No - HOME MEDS Home Medications: Home Meds Calcium Carbonate [Calcium] 600 mg PO DAILY 05/15/19 [History] Calcium Carbonate [Tums] 500 mg PO QID PRN 05/15/19 [History] Cholecalciferol (Vitamin D3) [Vitamin D3] 5,000 unit PO MOWEFR 05/15/19 [History ] L Acidophil/B Lactis/B Longum [Florajen3] 1 cap PO DAILY 05/15/19 [History] Levothyroxine [Synthroid] 50 mcg PO ACBREAKFAST 05/15/19 [History] Melatonin 10 mg PO BEDTIME 05/15/19 [History] Metoprolol Tartrate 50 mg PO BID 05/15/19 [History] Omeprazole Magnesium [Prilosec Otc] 40 mg PO DAILY 05/15/19 [History] Rivaroxaban [Xarelto] 15 mg PO DAILY 05/15/19 [History] Vit A/Vit C/Vit E/Zinc/Copper [Preservision Areds Softgel] 1 cap PO DAILY [History] Vitamin B Complex [B Complex] 0.5 tab PO DAILY 05/15/19 [History] - CURRENT (IN HOUSE) MEDS Current Meds: Current Medications Lactated Ringer's (Ringers, Lactated) 1,000 mls @ 125 mls/hr IV ASDIRECTED CELIO Stop: 05/18/19 23:00 Lidocaine/Sodium Bicarbonate (Buffered Lidocaine 1% In Ns 8.4%) 0.25 ml IDERM ONETIME PRN PRN Reason: Prior to IV Start Stop: 05/18/19 18:00 Sodium Chloride (Saline Flush) 10 ml FLUSH ASDIRECTED PRN PRN Reason: Keep Vein Open Stop: 05/18/19 18:00 Discontinued Medications Propofol (Diprivan 20 Ml) Confirm Administered Dose 200 mg .ROUTE .STK-MED ONE Stop: 05/18/19 07:05
--- NOTE | 2019-05-18 08:27 | PCM48HPAN ---
Post Anesthesia Note - EVALUATION WITHIN 48HRS OF ANESTHETIC Vital Signs in Normal Range: Yes Patient Participated in Evaluation: Yes Respiratory Function Stable: Yes Airway Patent: Yes Cardiovascular Function Stable: Yes Hydration Status Stable: Yes Pain Control Satisfactory: Yes Nausea and Vomiting Control Satisfactory: Yes Mental Status Recovered: Yes Vital Signs: Last Vital Signs Temp 36.6 C 05/18/19 07:10 Pulse 91 05/18/19 07:10 Resp 16 05/18/19 07:10 BP 149/99 H 05/18/19 07:10 Pulse Ox 94 L 05/18/19 07:10
--- NOTE | 2019-05-18 08:59 | PCM.OPNOTE ---
- General Post-Op/Procedure Note Date of Surgery/Procedure: 05/18/19 Operative Procedure(s): Esophagogastroduodenoscopy Findings: Pre-pyloric polyp - Biopsied Fundic polyps - Biopsied Esophagitis - Biopsied Pre Op Diagnosis: GERD, Heartburn Post-Op Diagnosis: Esophagitis Anesthesia Technique: Other (see below) (MAC) Primary Surgeon: Scotty Martinez Anesthesia Provider: Rocio Aguiar Condition: Good
[2019-05-18 09:47] VITALS: BP 152/93; PULSE 77
--- NOTE | 2019-05-18 10:23 | OR ---
DATE OF OPERATION: 05/18/2019 SURGEON: Scotty Martinez MD PREOPERATIVE DIAGNOSIS: 1. Gastroesophageal reflux disease. 2. Heartburn. POSTOPERATIVE DIAGNOSIS: 1. Prepyloric polyp. 2. Fundic polyps. 3. Esophagitis. 4. Hiatal hernia. ANESTHESIA: Monitored anesthesia care. INDICATIONS AND CONSENT: The patient is a 78-year-old female who presented to the clinic for evaluation of heartburn and GERD. The patient had these symptoms starting about a month ago. She initially did not have any symptoms and was only using probiotic, but eventually, these symptoms began and is bothering her as she has frequent heartburn and reflux disease. She presented to [facility], and they evaluated her and recommended that we proceed with EGD to evaluate the mucosa of the esophagus, stomach, and duodenum. Discussed in detail the risks, benefits, and options for this procedure. The patient agreed to proceed with procedure, and informed consent was obtained. DESCRIPTION OF PROCEDURE: The patient was taken to the procedure room and placed in a left lateral decubitus position. Following induction of monitored care anesthesia, an EGD scope was inserted into the mouth, down into the esophagus. The esophagus was examined, and I noted some whitish plaques diffusely from the upper esophagus on the way down to the distal esophagus, and these were consistent with eosinophilic esophagitis. The stomach had small less than 5 mm fundic polyps. The number was about 3 to 4 of them. These were biopsied for pathology. The prepyloric antrum had what appeared to be a polyp. This was also biopsied with cold forceps for pathology. The duodenum was unremarkable. There was a small hiatal hernia without any indications for Rafael ulcers. The GE junction did appear to be slightly inflamed. Therefore, four quadrant biopsies with cold Jumbo forceps were taken for histologic review. Also, biopsies of the distal esophagus were taken for histologic review as well. All biopsies were taken with cold forceps. Bleeding was minimal from all these biopsies, and the EGD scope was withdrawn slowly inspecting the entirety of the esophagus. There were no other polyps, masses, or diverticula that were found. The scope was withdrawn without any complications. The patient was awoken from monitored anesthesia and taken to the PACU in stable condition. IMPRESSION: 1. Normal duodenum. 2. Prepyloric polyp, biopsied. Fundic polyps, biopsied. 3. Hiatal hernia, small. 4. Esophagitis, suspicious for eosinophilic esophagitis, biopsied. ESTIMATED BLOOD LOSS: Minimal. PLAN: For the patient to return home. Continue to take omeprazole daily and plan for an upper GI, which is scheduled for this Saturday. The patient will follow up with me in 2 weeks to discuss the results of the pathology as well as the upper GI study. OPERATION PERFORMED: MMODAL /[id number]
== END 2019-05-18 09:45 | disposition home or self-care (01) ==
LOC: JD.SDS 06:52
PROVIDERS: ATTEND Surgery
DX: K21.9 Gastro-esophageal reflux disease without esophagitis (principal); K31.89 Other diseases of stomach and duodenum; K29.50 Unspecified chronic gastritis without bleeding; K31.7 Polyp of stomach and duodenum; K44.9 Diaphragmatic hernia without obstruction or gangrene; I48.0 Paroxysmal atrial fibrillation; E78.5 Hyperlipidemia, unspecified; I10 Essential (primary) hypertension; M19.90 Unspecified osteoarthritis, unspecified site; E78.00 Pure hypercholesterolemia, unspecified; E03.9 Hypothyroidism, unspecified; Z88.8 Allergy status to other drugs, medicaments and biological substances; Z79.01 Long term (current) use of anticoagulants
CPT/HCPCS: 43239; J2704; J7120

== ENCOUNTER 2019-06-07 10:31 | Emergency (ER) | payer MEDICARE, BC ==
[2019-06-07 10:52] VITALS: BP 153/73; PULSE 78
[2019-06-07] MEDS ORDERED: Sodium Chloride 0.9% 10 ML Syringe FLUSH PRN (11:19)
--- NOTE | 2019-06-07 12:56 | EDM.PDOC ---
ED HPI GENERAL MEDICAL PROBLEM - General Chief Complaint: Abdominal Pain Stated Complaint: STOMACH PAIN Time Seen by Provider: 06/07/19 10:41 Source of Information: Reports: Patient History Limitations: Reports: No Limitations - History of Present Illness INITIAL COMMENTS - FREE TEXT/NARRATIVE: The patient presents with RUQ abdominal pain. This has been an issue for the past 6 weeks. She says this morning after eating she developed more pain in her RUQ. She says the pain comes and goes and it sometimes is after eating. She has no nausea or vomiting. She has no fever or chills. She has no dysuria or hematuria. She has been to a few doctors and they have been unable to figure this out. She does not think she had an US. She still has her gallbladder and appendix. Onset: Gradual Duration: Week(s): Quality: Reports: Sharp Severity: Severe Improves with: Reports: None Worsens with: Reports: None Associated Symptoms: Denies: Chest Pain, Cough, Fever/Chills, Headaches, Nausea/ Vomiting, Shortness of Breath Right Lower Abdomen Pain Score (Numeric/FACES): 10 - Related Data Allergies Allergy/AdvReac Type Severity Reaction Status Date / Time No Known Allergies Allergy Verified 06/07/19 10:54 Home Meds: Home Meds Calcium Carbonate [Calcium] 600 mg PO DAILY 05/15/19 [History] Calcium Carbonate [Tums] 500 mg PO QID PRN 05/15/19 [History] Cholecalciferol (Vitamin D3) [Vitamin D3] 5,000 unit PO MOWEFR 05/15/19 [History ] L Acidophil/B Lactis/B Longum [Florajen3] 1 cap PO DAILY 05/15/19 [History] Levothyroxine [Synthroid] 50 mcg PO ACBREAKFAST 05/15/19 [History] Melatonin 10 mg PO BEDTIME 05/15/19 [History] Metoprolol Tartrate 50 mg PO BID 05/15/19 [History] Omeprazole Magnesium [Prilosec Otc] 40 mg PO DAILY 05/15/19 [History] Rivaroxaban [Xarelto] 15 mg PO DAILY 05/15/19 [History] Vit A/Vit C/Vit E/Zinc/Copper [Preservision Areds Softgel] 1 cap PO DAILY [History] Vitamin B Complex [B Complex] 0.5 tab PO DAILY 05/15/19 [History] Past Medical History HEENT History: Reports: Macular Degeneration Other HEENT History: Wears glasses Cardiovascular History: Reports: Afib, High Cholesterol, Hypertension, Pacemaker , Syncope Other Cardiovascular History: Diastolic dysfunction, frequent PVCs, sick sinus syndrome, atypical chest pain Respiratory History: Reports: None Other Respiratory History: sinus problems, does sinus washes Gastrointestinal History: Reports: GERD, Other (See Below) Other Gastrointestinal History: Esophagitis Genitourinary History: Reports: None DRAFTER PATENT History: Reports: None Musculoskeletal History: Reports: Osteoarthritis Neurological History: Reports: Concussion Psychiatric History: Reports: Anxiety, Depression Endocrine/Metabolic History: Reports: Hypothyroidism, Vitamin D Deficiency Hematologic History: Reports: None Immunologic History: Reports: None Oncologic (Cancer) History: Reports: None Dermatologic History: Reports: None - Infectious Disease History Infectious Disease History: Reports: Chicken Pox, Measles - Past Surgical History Head Surgeries/Procedures: Reports: None HEENT Surgical History: Reports: Cataract Surgery Cardiovascular Surgical History: Reports: None Respiratory Surgical History: Reports: None GI Surgical History: Reports: Colonoscopy, EGD Female Surgical History: Reports: Dilitation & Evacuation, Hysterectomy Endocrine Surgical History: Reports: None Neurological Surgical History: Reports: Laminectomy Musculoskeletal Surgical History: Reports: Other (See Below) Other Musculoskeletal Surgeries/Procedures:: Knee surgery Oncologic Surgical History: Reports: None Dermatological Surgical History: Reports: None Social & Family History - Family History Family Medical History: Noncontributory HEENT: Reports: None Cardiac: Reports: CAD Respiratory: Reports: None GI: Reports: None : Reports: None OBGYN: Reports: None Musculoskeletal: Reports: None Neurological: Reports: None Psychiatric: Reports: None Endocrine/Metabolic: Reports: None Hematologic: Reports: None Immunologic: Reports: None Oncologic: Reports: Ovarian - Tobacco Use Smoking Status *Q: Never Smoker - Caffeine Use Caffeine Use: Reports: None Caffeine Use Comment: rarely with upset stomache and occassionally chamomile tea - Recreational Drug Use Recreational Drug Use: No - Living Situation & Occupation Living situation: Reports: , Alone Occupation: Retired ED ROS GENERAL - Review of Systems Review Of Systems: See Below Constitutional: Reports: No Symptoms HEENT: Reports: No Symptoms Respiratory: Reports: No Symptoms Cardiovascular: Reports: No Symptoms Endocrine: Reports: No Symptoms GI/Abdominal: Reports: Abdominal Pain. Denies: Diarrhea, Nausea, Vomiting : Reports: No Symptoms ED EXAM, GI/ABD - Physical Exam Exam: See Below Exam Limited By: No Limitations General Appearance: Alert, No Apparent Distress Ears: Normal External Exam Nose: Normal Inspection Head: Atraumatic, Normocephalic Neck: Normal Inspection Respiratory/Chest: No Respiratory Distress, Lungs Clear, Normal Breath Sounds Cardiovascular: Regular Rate, Rhythm, No Edema, No Murmur GI/Abdominal Exam: Soft, No Organomegaly, No Mass, Tender (Mild to moderate pain to the RUQ) Course - Vital Signs Last Recorded V/S: Last Vital Signs Temp 97.3 F 06/07/19 10:50 Pulse 78 06/07/19 10:50 Resp 18 06/07/19 10:50 BP 153/73 H 06/07/19 10:50 Pulse Ox 97 06/07/19 10:50 - Orders/Labs/Meds Orders: Active Orders 24 hr Category Date Time Status Peripheral IV Care [RC] . DIRECTED Care 06/07/19 11:19 Active Sodium Chloride 0.9% [Saline Flush] Med 06/07/19 11:19 Active 10 ml FLUSH ASDIRECTED PRN Peripheral IV Insertion Adult [OM.PC] Stat Oth 06/07/19 11:19 Ordered Medication Orders Sodium Chloride (Saline Flush) 10 ml FLUSH ASDIRECTED PRN PRN Reason: Keep Vein Open Labs: Laboratory Tests 06/07/19 06/07/19 06/07/19 Range/Units 11:13 11:13 12:10 WBC 6.99 (3.98-10.04) K/mm3 RBC 4.07 (3.98-5.22) M/mm3 Hgb 11.9 (11.2-15.7) gm/dl Hct 35.3 (34.1-44.9) % MCV 86.7 D (79.4-94.8) fl MCH 29.2 (25.6-32.2) pg MCHC 33.7 (32.2-35.5) g/dl RDW Std Deviation 49.7 H (36.4-46.3) fL Plt Count 244 (182-369) K/mm3 MPV 9.4 (9.4-12.3) fl Neut % (Auto) 57.8 (34.0-71.1) % Lymph % (Auto) 28.6 (19.3-51.7) % [place] % (Auto) 11.7 (4.7-12.5) % Eos % (Auto) 1.6 (0.7-5.8) Baso % (Auto) 0.3 (0.1-1.2) % Neut # (Auto) 4.04 (1.56-6.13) K/mm3 Lymph # (Auto) 2.00 (1.18-3.74) K/mm3 [place] # (Auto) 0.82 H (0.24-0.36) K/mm3 Eos # (Auto) 0.11 (0.04-0.36) K/mm3 Baso # (Auto) 0.02 (0.01-0.08) K/mm3 Sodium 135 L D (136-145) mEq/L Potassium 4.0 (3.5-5.1) mEq/L Chloride 99 (98-107) mEq/L Carbon Dioxide 28 (21-32) mEq/L Anion Gap 12.0 (5-15) BUN 15 (7-18) mg/dL Creatinine 0.7 (0.55-1.02) mg/dL Est Cr Clr Drug Dosing 46.81 mL/min Estimated GFR (MDRD) > 60 (>60) mL/min BUN/Creatinine Ratio 21.4 H (14-18) Glucose 95 (83-115) mg/dL Calcium 8.4 L (8.5-10.1) mg/dL Total Bilirubin 0.4 (0.2-1.0) mg/dL AST 20 (15-37) U/L ALT 25 (14-59) U/L Alkaline Phosphatase 65 (46-116) U/L Total Protein 6.8 (6.4-8.2) g/dl Albumin 3.3 L (3.4-5.0) g/dl Globulin 3.5 gm/dL Albumin/Globulin Ratio 0.9 L (1-2) Lipase 192 (73-393) U/L Urine Color Yellow (Yellow) Urine Appearance Clear (Clear) Urine pH 7.0 (5.0-8.0) Ur Specific [place] 1.015 (1.005-1.030) Urine Protein Negative (Negative) Urine Glucose (UA) Negative (Negative) Urine Ketones Negative (Negative) Urine Occult Blood Negative (Negative) Urine Nitrite Negative (Negative) Urine Bilirubin Negative (Negative) Urine Urobilinogen 0.2 (0.2-1.0) Ur Leukocyte Esterase Negative (Negative) Urine RBC Not seen (0-5) /hpf Urine WBC 0-5 (0-5) /hpf Ur Epithelial Cells 0-5 (0-5) /hpf Urine Bacteria Not seen (FEW) /hpf Urine Mucus Not seen (FEW) /hpf Meds: Medications Generic Name Dose Route Start Last Admin Trade Name Freq PRN Reason Stop Dose Admin Sodium Chloride 10 ml 06/07/19 11:19 Saline Flush FLUSH ASDIRECTED PRN Keep Vein Open - Re-Assessments/Exams Free Text/Narrative Re-Assessment/Exam: 06/07/19 12:53 I ordered labs, UA and an US of her gallbladder. Her CBC looks good. Her Na was a little low at 135. Her lipase is normal. Her UA shows no UTI. I am waiting for the US report. 06/07/19 13:55 The US shows nothing acute. She feels good now. I will discharge her home and follow up with Dr Arciniega. Departure - Departure Time of Disposition: 14:00 Disposition: Home, Self-Care 01 Condition: Good Clinical Impression: Abdominal pain Qualifiers: Abdominal location: right upper quadrant Qualified Code(s): R10.11 - Right upper quadrant pain - Discharge Information *PRESCRIPTION DRUG MONITORING PROGRAM REVIEWED*: No *COPY OF PRESCRIPTION DRUG MONITORING REPORT IN PATIENT SU: No Referrals: Charis Desir MD [Primary Care Provider] - 1 Week Forms: ED Department Discharge Additional Instructions: Take your medication as prescribed. Avoid any fried fatty food until you see your doctor. She may want to do a HIDA scan to access your gallbladder function. Please return if you are worse. - My Orders Last 24 Hours: My Active Orders 06/07/19 11:19 Peripheral IV Care [RC] . DIRECTED Sodium Chloride 0.9% [Saline Flush] 10 ml FLUSH ASDIRECTED PRN Peripheral IV Insertion Adult [OM.PC] Stat - Assessment/Plan Last 24 Hours: My Active Orders 06/07/19 11:19 Peripheral IV Care [RC] . DIRECTED Sodium Chloride 0.9% [Saline Flush] 10 ml FLUSH ASDIRECTED PRN Peripheral IV Insertion Adult [OM.PC] Stat
--- NOTE | 2019-06-07 13:29 | US ---
Limited abdominal ultrasound: Multiple real-time images were obtained of the upper right abdomen. Comparison: No prior abdominal ultrasound is available. Liver shows no focal parenchymal abnormality. Gallbladder contains no shadowing gallstones. No gallbladder wall thickening or biliary duct dilatation is seen. Right kidney shows no hydronephrosis or mass and has a length of 10.0 cm. Pancreas is incompletely seen. Visualized portions of the pancreas are within normal limits. Inferior vena cava is patent. Portal vein shows normal hepatopedal flow. Impression: 1. No abnormality is identified on right upper quadrant abdominal ultrasound. Diagnostic code #1
== END 2019-06-07 14:42 | disposition home or self-care (01) ==
LOC: JD.ED 10:31
DX: R10.11 Right upper quadrant pain (principal); I10 Essential (primary) hypertension; K21.9 Gastro-esophageal reflux disease without esophagitis; E03.9 Hypothyroidism, unspecified; E55.9 Vitamin D deficiency, unspecified; Z79.890 Hormone replacement therapy; Z79.899 Other long term (current) drug therapy; Z95.0 Presence of cardiac pacemaker
CPT/HCPCS: 36415; 76705; 76705-26; 80053; 81001; 83690; 85025; 99283; 99284-25

== ENCOUNTER 2019-08-10 19:28 | Emergency (ER) | payer MEDICARE, BC ==
[2019-08-10 19:59] VITALS: BP 170/100; PULSE 82
--- NOTE | 2019-08-10 20:29 | EDM.PDOC ---
ED HPI GENERAL MEDICAL PROBLEM - General Chief Complaint: Neurological Problem Stated Complaint: DIZZY/NAUSEA Time Seen by Provider: 08/10/19 20:29 - History of Present Illness INITIAL COMMENTS - FREE TEXT/NARRATIVE: 79-year-old female presents emergency room with dizziness and nausea. Patient has ongoing problem with dizziness but this seems to be a little bit worse today she has intermittent nausea. The patient has Zofran at home but is reluctant to use it. The patient had sinus surgery on the of this month. She's doing sinus irrigation and is otherwise doing okay with this. She follows up with her ENT on . She denies any fevers or chills no worsening pain. The dizziness seems to be worse with activities where she changes direction. Can 't really pin it down to standing up but I suspect this as well. - Related Data Allergies Allergy/AdvReac Type Severity Reaction Status Date / Time No Known Allergies Allergy Verified 06/07/19 10:54 Home Meds: Home Meds Calcium Carbonate [Calcium] 600 mg PO DAILY 05/15/19 [History] Cholecalciferol (Vitamin D3) [Vitamin D3] 5,000 unit PO MOWEFR 05/15/19 [History ] L Acidophil/B Lactis/B Longum [Florajen3] 1 cap PO DAILY 05/15/19 [History] Levothyroxine [Synthroid] 50 mcg PO ACBREAKFAST 05/15/19 [History] Melatonin 10 mg PO BEDTIME 05/15/19 [History] Metoprolol Tartrate 50 mg PO BID 05/15/19 [History] Omeprazole Magnesium [Prilosec Otc] 40 mg PO DAILY 05/15/19 [History] Vit A/Vit C/Vit E/Zinc/Copper [Preservision Areds Softgel] 1 cap PO DAILY [History] Vitamin B Complex [B Complex] 0.5 tab PO DAILY 05/15/19 [History] Acetaminophen [Tylenol Arthritis] 650 mg PO ASDIRECTED 08/10/19 [History] Apixaban [Eliquis] 2.5 mg PO BID 08/10/19 [History] Areds2 Plus 2 tab PO DAILY 08/10/19 [History] Fluticasone Propionate [Flonase Allergy Relief] 2 spray INH DAILY 08/10/19 [ History] Ondansetron [Zofran ODT] 4 mg PO ASDIRECTED 08/10/19 [History] Past Medical History HEENT History: Reports: Macular Degeneration Other HEENT History: Wears glasses; nose surgery-nasal passages Jun 2019-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 nares Cardiovascular History: Reports: Afib, High Cholesterol, Hypertension, Pacemaker , Syncope Other Cardiovascular History: Diastolic dysfunction, frequent PVCs, sick sinus syndrome, atypical chest pain Respiratory History: Reports: None Other Respiratory History: sinus problems, does sinus washes Gastrointestinal History: Reports: GERD, Other (See Below) Other Gastrointestinal History: Esophagitis Genitourinary History: Reports: None INTEGRATION LEAD History: Reports: None Musculoskeletal History: Reports: Osteoarthritis Neurological History: Reports: Concussion Psychiatric History: Reports: Anxiety, Depression Endocrine/Metabolic History: Reports: Hypothyroidism, Vitamin D Deficiency Hematologic History: Reports: None Immunologic History: Reports: None Oncologic (Cancer) History: Reports: None Dermatologic History: Reports: None - Infectious Disease History Infectious Disease History: Reports: Chicken Pox, Measles - Past Surgical History Head Surgeries/Procedures: Reports: None HEENT Surgical History: Reports: Cataract Surgery Cardiovascular Surgical History: Reports: None Respiratory Surgical History: Reports: None GI Surgical History: Reports: Colonoscopy, EGD Female Surgical History: Reports: Dilitation & Evacuation, Hysterectomy Endocrine Surgical History: Reports: None Neurological Surgical History: Reports: Laminectomy Musculoskeletal Surgical History: Reports: Other (See Below) Other Musculoskeletal Surgeries/Procedures:: Knee surgery Oncologic Surgical History: Reports: None Dermatological Surgical History: Reports: None Social & Family History - Family History Family Medical History: Noncontributory HEENT: Reports: None Cardiac: Reports: CAD Respiratory: Reports: None GI: Reports: None : Reports: None OBGYN: Reports: None Musculoskeletal: Reports: None Neurological: Reports: None Psychiatric: Reports: None Endocrine/Metabolic: Reports: None Hematologic: Reports: None Immunologic: Reports: None Oncologic: Reports: Ovarian - Tobacco Use Smoking Status *Q: Never Smoker - Caffeine Use Caffeine Use: Reports: Tea Caffeine Use Comment: rarely with upset stomache and occassionally chamomile tea - Recreational Drug Use Recreational Drug Use: No - Living Situation & Occupation Living situation: Reports: , Alone Occupation: Retired ED ROS GENERAL - Review of Systems Review Of Systems: See Below Constitutional: Reports: No Symptoms. Denies: Fever, Chills HEENT: Reports: Sinus Problem. Denies: Nose Pain, Rhinitis Respiratory: Reports: No Symptoms Cardiovascular: Reports: No Symptoms Endocrine: Reports: No Symptoms GI/Abdominal: Reports: No Symptoms : Reports: No Symptoms Neurological: Reports: Dizziness. Denies: Confusion, Headache, Numbness, Seizure, Syncope Psychiatric: Reports: No Symptoms ED EXAM, GENERAL - Physical Exam Exam: See Below Exam Limited By: No Limitations General Appearance: Alert, No Apparent Distress Ears: Normal External Exam, Normal Canal, Hearing Grossly Normal, Normal TMs, Other (Some cerumen in the external canal) Nose: Normal Inspection, Normal Mucosa, No Blood Throat/Mouth: Normal Inspection, Normal Lips, Normal Gums, Normal Oropharynx, Normal Voice, No Airway Compromise Head: Atraumatic, Normocephalic Neck: Normal Inspection, Supple, Non-Tender, Full Range of Motion Respiratory/Chest: No Respiratory Distress, Lungs Clear, Normal Breath Sounds, No Accessory Muscle Use, Chest Non-Tender Cardiovascular: Normal Peripheral Pulses, Regular Rate, Rhythm, No Edema, No Gallop, No JVD, No Murmur, No Rub Back Exam: Normal Inspection. No: CVA Tenderness (L), CVA Tenderness (R) Extremities: Normal Inspection. No: No Pedal Edema Course - Vital Signs Last Recorded V/S: Last Vital Signs Temp 36.8 C 08/10/19 19:56 Pulse 82 08/10/19 19:56 Resp 20 08/10/19 19:56 BP 170/100 H 08/10/19 19:56 Pulse Ox 96 08/10/19 19:56 - Re-Assessments/Exams Free Text/Narrative Re-Assessment/Exam: 08/10/19 21:03 Long discussion with the patient about increasing her sinus irrigation from twice a day to 4 times a day this may help keep everything "she does admit that when she uses her sinus irrigation it does help. Patient is Zofran she should use this as needed for the nausea and it will help with the dizziness also. Patient has follow-up with her ENT on she needs to discuss getting into physical therapy for her chronic dizziness and see if she is ready after the sinus surgery. Departure - Departure Time of Disposition: 21:03 Disposition: Home, Self-Care 01 Clinical Impression: Dizziness, Nausea - Discharge Information Referrals: Charis Desir MD [Primary Care Provider] - Forms: ED Department Discharge Additional Instructions: Return to emergency room if any questions problems or worsening symptoms. Use your Zofran as needed. As we discussed increase use your sinus irrigation 4 times a day. Discuss physical therapy with your ENT see if you're ready after your surgery, as this may help with your chronic dizziness. Sepsis Event Note - Evaluation Sepsis Screening Result: No Definite Risk - Focused Exam Vital Signs: Vital Signs Temp Pulse Resp BP Pulse Ox 08/10/19 19:56 36.8 C 82 20 170/100 H 96 Date Exam was Performed: 08/10/19 Time Exam was Performed: 20:39
== END 2019-08-10 21:15 | disposition home or self-care (01) ==
LOC: JD.ED 19:28
DX: R42 Dizziness and giddiness (principal); R11.0 Nausea; I10 Essential (primary) hypertension; E03.9 Hypothyroidism, unspecified; K21.9 Gastro-esophageal reflux disease without esophagitis; I48.91 Unspecified atrial fibrillation; Z79.01 Long term (current) use of anticoagulants; Z79.899 Other long term (current) drug therapy
CPT/HCPCS: 99282; 99283

== ENCOUNTER 2019-08-28 08:37 | Emergency (ER) | payer MEDICARE, BC ==
--- NOTE | 2019-08-28 09:32 | EDM.PDOC ---
ED HPI GENERAL MEDICAL PROBLEM - General Chief Complaint: ENT Problem Stated Complaint: DIZZINESS Time Seen by Provider: 08/28/19 09:23 Source of Information: Reports: Patient History Limitations: Reports: No Limitations - History of Present Illness INITIAL COMMENTS - FREE TEXT/NARRATIVE: 79-year-old female is as to the ED feeling like her head is going to explode. A lot of pressure behind her ears. She has a history of chronic sinus infections having had recent surgery in June of this year with Dr. Montero ENT surgeon in [place]. She has had nasal spine and sinus surgery 5 times in total. She became concerned when her blood pressure was markedly elevated at home both last night and again this morning. Once she settled here her blood pressure has come down to normal. He appears very anxious and has some insight into anxiety being some of her problem. Is until her heart skipping racing or jumping. Appetite has been good. She has no fever or chills. He did take her normal medications this morning. This been no recent changes to any of her medications. Onset: Sudden Onset Date: 08/27/19 (Last p.m.) Onset Time: 20:00 Duration: Hour(s):, Constant, Other (Sleep very well poorly 4 hours.) Location: Reports: Generalized (Sense of being unwell with pressure in her ears and head but not a headache. She really has no true vertigo symptoms but feels offkilter with walking.) Quality: Reports: Ache, Pressure, Other (Her concern is whether her blood pressure is running too high.) Severity: Moderate Improves with: Reports: None Worsens with: Reports: None Context: Denies: Activity, Exercise, Lifting, Sick Contact, Trauma, Other Associated Symptoms: Reports: Other (Pressure behind her ears sending her head.) . 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 (see below) (Her regular medications.) Left Abdomen Pain Score (Numeric/FACES): 2 - Related Data Allergies Allergy/AdvReac Type Severity Reaction Status Date / Time No Known Allergies Allergy Verified 06/07/19 10:54 Home Meds: Home Meds Calcium Carbonate [Calcium] 600 mg PO DAILY 05/15/19 [History] Cholecalciferol (Vitamin D3) [Vitamin D3] 5,000 unit PO MOWEFR 05/15/19 [History ] L Acidophil/B Lactis/B Longum [Florajen3] 1 cap PO DAILY 05/15/19 [History] Levothyroxine [Synthroid] 50 mcg PO ACBREAKFAST 05/15/19 [History] Melatonin 10 mg PO BEDTIME 05/15/19 [History] Metoprolol Tartrate 50 mg PO BID 05/15/19 [History] Omeprazole Magnesium [Prilosec Otc] 40 mg PO DAILY 05/15/19 [History] Vit A/Vit C/Vit E/Zinc/Copper [Preservision Areds Softgel] 1 cap PO DAILY [History] Vitamin B Complex [B Complex] 0.5 tab PO DAILY 05/15/19 [History] Acetaminophen [Tylenol Arthritis] 650 mg PO ASDIRECTED 08/10/19 [History] Apixaban [Eliquis] 2.5 mg PO BID 08/10/19 [History] Areds2 Plus 2 tab PO DAILY 08/10/19 [History] Fluticasone Propionate [Flonase Allergy Relief] 2 spray INH DAILY 08/10/19 [ History] Ondansetron [Zofran ODT] 4 mg PO ASDIRECTED 08/10/19 [History] Cefdinir [Omnicef] 300 mg PO BID #16 cap 08/28/19 [Rx] Past Medical History HEENT History: Reports: Macular Degeneration, Sinusitis Other HEENT History: Wears glasses; nose surgery-nasal passages Jun 2019-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 Sinus surgery in 2018. Cardiovascular History: Reports: Afib, High Cholesterol, Hypertension, Pacemaker , Syncope Other Cardiovascular History: Diastolic dysfunction, frequent PVCs, sick sinus syndrome, atypical chest pain Respiratory History: Reports: None Other Respiratory History: sinus problems, does sinus washes Gastrointestinal History: Reports: GERD, Other (See Below) Other Gastrointestinal History: Esophagitis Genitourinary History: Reports: None CLINICAL EVALUATOR History: Reports: None Musculoskeletal History: Reports: Osteoarthritis Neurological History: Reports: Concussion Psychiatric History: Reports: Anxiety, Depression Endocrine/Metabolic History: Reports: Hypothyroidism, Vitamin D Deficiency Hematologic History: Reports: None Immunologic History: Reports: None Oncologic (Cancer) History: Reports: None Dermatologic History: Reports: None - Infectious Disease History Infectious Disease History: Reports: Chicken Pox, Measles - Past Surgical History Head Surgeries/Procedures: Reports: None HEENT Surgical History: Reports: Cataract Surgery Cardiovascular Surgical History: Reports: None Respiratory Surgical History: Reports: None GI Surgical History: Reports: Colonoscopy, EGD Female Surgical History: Reports: Dilitation & Evacuation, Hysterectomy Endocrine Surgical History: Reports: None Neurological Surgical History: Reports: Laminectomy Musculoskeletal Surgical History: Reports: Other (See Below) Other Musculoskeletal Surgeries/Procedures:: Knee surgery Oncologic Surgical History: Reports: None Dermatological Surgical History: Reports: None Social & Family History - Family History Family Medical History: Noncontributory HEENT: Reports: None Cardiac: Reports: CAD Respiratory: Reports: None GI: Reports: None : Reports: None OBGYN: Reports: None Musculoskeletal: Reports: None Neurological: Reports: None Psychiatric: Reports: None Endocrine/Metabolic: Reports: None Hematologic: Reports: None Immunologic: Reports: None Oncologic: Reports: Ovarian - Tobacco Use Smoking Status *Q: Never Smoker - Caffeine Use Caffeine Use: Reports: Tea Caffeine Use Comment: rarely with upset stomache and occassionally chamomile tea - Recreational Drug Use Recreational Drug Use: No - Living Situation & Occupation Living situation: Reports: , Alone Occupation: Retired ED ROS GENERAL - Review of Systems Review Of Systems: See Below Constitutional: Reports: Malaise, Fatigue. Denies: Fever, Chills HEENT: Reports: Ear Pain, Sinus Problem (Running sinus problem with some drainage. No post nasal drip.). Denies: Ear Discharge (Pressure behind the ears.), Eye Discharge Respiratory: Reports: No Symptoms Cardiovascular: Reports: Blood Pressure Problem Endocrine: Reports: No Symptoms GI/Abdominal: Reports: No Symptoms (Feels like her blood pressure is very labile and goes up and down I believe secondary to anxiety.) : Reports: Frequency Musculoskeletal: Reports: Joint Pain Skin: Reports: No Symptoms Neurological: Reports: No Symptoms, Difficulty Walking. Denies: Confusion, Dizziness, Headache, Numbness, Seizure, Syncope, Tingling, Weakness Psychiatric: Reports: Anxiety Hematologic/Lymphatic: Reports: No Symptoms Immunologic: Reports: No Symptoms ED EXAM, DIZZINESS - Physical Exam Exam: See Below Exam Limited By: No Limitations General Appearance: Alert, WD/WN, No Apparent Distress, Anxious (Ears quite anxious.), Other (Temperature is 36.3 with heart rate of 98 in sinus respiratory to be 18 O2 sats 100%. Initial BP was 140 01/24/06 but came down to 138/88.) Eye Exam: Bilateral Eye: Normal Inspection Ears: Normal TMs Nose: Nasal Drainage (There is thick green mucus in both nasal cavities.), Other Throat/Mouth: Normal Inspection, Normal Lips, Normal Teeth, Normal Oropharynx Head Exam: Atraumatic, Normocephalic Neck: Normal Inspection, Supple, Non-Tender, Full Range of Motion. No: Carotid Bruit, Lymphadenopathy (L), Lymphadenopathy (R), Thyromegaly Respiratory/Chest: No Respiratory Distress, Lungs Clear, Normal Breath Sounds, No Accessory Muscle Use, Chest Non-Tender Cardiovascular: Normal Peripheral Pulses, Regular Rate, Rhythm, No Edema, No Gallop, No Murmur, No Rub GI/Abdominal: Normal Bowel Sounds, Soft, Non-Tender, No Organomegaly, No Abnormal Bruit, No Mass, Pelvis Stable Neurological: Alert, Normal Mood/Affect, Normal Dorsiflexion, CN II-XII Intact, Normal Plantar Flexion, Normal Gait, Normal Reflexes, Oriented x 3 Back Exam: Normal Inspection, Full Range of Motion. No: CVA Tenderness (L), CVA Tenderness (R) Extremities: Normal Inspection, Normal Range of Motion, Non-Tender, No Pedal Edema Psychiatric: Normal Affect, Anxious Skin Exam: Warm, Dry, Intact, Normal Color, No Rash Course - Vital Signs Last Recorded V/S: Last Vital Signs Temp 36.3 C 08/28/19 08:52 Pulse 98 08/28/19 08:52 Resp 18 08/28/19 08:52 BP 146/106 H 08/28/19 08:52 Pulse Ox 100 08/28/19 08:52 - Orders/Labs/Meds Orders: Active Orders 24 hr Category Date Time Status OSMOLALITY,SERUM [CHEM] Stat Lab 08/28/19 10:01 Received Labs: Laboratory Tests 08/28/19 08/28/19 Range/Units 10:01 10:01 WBC 7.86 (3.98-10.04) K/mm3 RBC 4.22 (3.98-5.22) M/mm3 Hgb 12.7 (11.2-15.7) gm/dl Hct 37.6 (34.1-44.9) % MCV 89.1 (79.4-94.8) fl MCH 30.1 (25.6-32.2) pg MCHC 33.8 (32.2-35.5) g/dl RDW Std Deviation 49.7 H (36.4-46.3) fL Plt Count 246 (182-369) K/mm3 MPV 9.3 L (9.4-12.3) fl Neut % (Auto) 69.8 (34.0-71.1) % Lymph % (Auto) 18.4 L (19.3-51.7) % [place] % (Auto) 11.2 (4.7-12.5) % Eos % (Auto) 0.4 L (0.7-5.8) Baso % (Auto) 0.1 (0.1-1.2) % Neut # (Auto) 5.48 (1.56-6.13) K/mm3 Lymph # (Auto) 1.45 (1.18-3.74) K/mm3 [place] # (Auto) 0.88 H (0.24-0.36) K/mm3 Eos # (Auto) 0.03 L (0.04-0.36) K/mm3 Baso # (Auto) 0.01 (0.01-0.08) K/mm3 Sodium 130 L (136-145) mEq/L Potassium 4.1 (3.5-5.1) mEq/L Chloride 95 L (98-107) mEq/L Carbon Dioxide 28 (21-32) mEq/L Anion Gap 11.1 (5-15) BUN 14 (7-18) mg/dL Creatinine 0.7 (0.55-1.02) mg/dL Est Cr Clr Drug Dosing 46.04 mL/min Estimated GFR (MDRD) > 60 (>60) mL/min BUN/Creatinine Ratio 20.0 H (14-18) Glucose 71 L (83-115) mg/dL Calcium 8.9 (8.5-10.1) mg/dL Total Bilirubin 0.7 (0.2-1.0) mg/dL AST 19 (15-37) U/L ALT 28 (14-59) U/L Alkaline Phosphatase 67 (46-116) U/L C-Reactive Protein < 0.2 (<1.0) mg/dL Total Protein 7.3 (6.4-8.2) g/dl Albumin 3.6 (3.4-5.0) g/dl Globulin 3.7 gm/dL Albumin/Globulin Ratio 1.0 (1-2) - Radiology Interpretation Free Text/Narrative:: 79-year-old female primarily presents to the ED with generalized anxiety and labile hypertension aggravated by her anxiety. She has pressure in her ears and face and has history of chronic sinus problems having had 5 surgeries on her sinuses. Most recent being in June of last year. She is thick green mucus in both sides of her naris. Her blood pressure settled after she was in bed for a period of time. She has some good insight that she is quite anxious and blood pressure makes her even more anxious. Plan maxillofacial CT to be done. She has a history of hyponatremia and therefore routine labs will be collected as well. - Re-Assessments/Exams Free Text/Narrative Re-Assessment/Exam: 08/28/19 11:51 White count is 7.86 with auto differential of 70% neutrophils. Hemoglobin 12.7 with hematocrit of 37.6. Platelet count normal 246,000. Sodium is slightly low at 1:30 with a potassium of 4.1. Chloride 95 with a bicarbonate 20. Anion gap is 11.1. BUNs 14 with a creatinine of 0.7. Estimated GFR is greater than 60. Glucose slightly low at 71. Calcium is 8.9. Liver function is normal. C-reactive protein is less than 0.2. Total protein 7.3 with albumin fraction of 3.[address] of the maxillofacial sinuses reveals chronic sinusitis basically throughout all of the sinuses. There are no air-fluid levels to suggest acute sinus infection. 08/28/19 12:10 patient's blood pressure is mildly elevated but not bad enough to require further medication and she's not keen to take further medication. Quite apprehensive and I think this contributes to her labile hypertension. She has some insight into this as well. I'm going to treat her pansinusitis with Omnicef 300 mg twice daily for 8 days in the hopes of eradicating some of this infection. Will follow-up with her personal care physician and has an appointment for Dr. Montero--ENT in October of this year. Departure - Departure Time of Disposition: 12:12 Disposition: Home, Self-Care 01 Condition: Fair Clinical Impression: Labile essential hypertension, Chronic pansinusitis - Discharge Information *PRESCRIPTION DRUG MONITORING PROGRAM REVIEWED*: Not Applicable *COPY OF PRESCRIPTION DRUG MONITORING REPORT IN PATIENT SU: Not Applicable Prescriptions: Cefdinir [Omnicef] 300 mg PO BID #16 cap Instructions: Hypertension Referrals: Charis Desir MD [Primary Care Provider] - Forms: ED Department Discharge Additional Instructions: Evaluation in the emergency him today in regards to high blood pressure at home but higher at home than what we achieved in the ED. Blood pressure is indeed protocol labile which means up and down. I believe this is partly due to being anxious about her blood pressure. It is not out of control and not near high enough to worry about stroke levels. At this time I do not feel you need further blood pressure medication. Due to the pressure in your ears and face and head axial facial CT was repeated today and does show infection and all of your sinuses which we call pansinusitis. The infection appears to be chronic. Believe it may be contributing to current illness. Suggest antibiotic Omnicef 300 mg twice daily for the next days to clear up this infection. Suggest follow- up with your personal care physician in 2 weeks' time for blood pressure review. Sepsis Event Note - Evaluation Sepsis Screening Result: No Definite Risk - Focused Exam Vital Signs: Vital Signs Temp Pulse Resp BP Pulse Ox 08/28/19 08:52 36.3 C 98 18 146/106 H 100 Date Exam was Performed: 08/28/19 Time Exam was Performed: 12:24 - My Orders Last 24 Hours: My Active Orders 08/28/19 10:01 OSMOLALITY,SERUM [CHEM] Stat - Assessment/Plan Last 24 Hours: My Active Orders 08/28/19 10:01 OSMOLALITY,SERUM [CHEM] Stat
--- NOTE | 2019-08-28 10:27 | CT ---
CT paranasal sinuses Technique: Multiple axial sections through the paranasal sinuses were obtained. Reconstructed coronal and sagittal images were obtained. Comparison: Previous paranasal sinus CT exam of 12/17/15. Findings: Mild mucosal thickening is seen within the left maxillary sinus. Mild to moderate mucosal thickening is noted within the right maxillary sinus. Mild mucosal thickening is seen within the ethmoid sinuses. Mucosal thickening is also noted within the sphenoid sinus. There are no air-fluid levels being seen. Previous sinus surgery is noted. Mastoid sinuses show nothing acute. Impression: 1. Mucosal thickening within the paranasal sinuses as noted above having appearance of mild chronic sinusitis. 2. No air-fluid levels are seen to indicate acute sinusitis. 3. Previous paranasal sinus surgery is noted. Note: Mucosal thickening has slightly increased from previous exam. Diagnostic code #2 This report was dictated in [place] Standard Time
[2019-08-28 12:41] VITALS: BP 147/95; PULSE 73
== END 2019-08-28 12:36 | disposition home or self-care (01) ==
LOC: JD.ED 08:37
DX: J32.4 Chronic pansinusitis (principal); I10 Essential (primary) hypertension; E78.00 Pure hypercholesterolemia, unspecified; I48.91 Unspecified atrial fibrillation; K21.9 Gastro-esophageal reflux disease without esophagitis; M19.90 Unspecified osteoarthritis, unspecified site; F41.9 Anxiety disorder, unspecified; E03.9 Hypothyroidism, unspecified; Z79.899 Other long term (current) drug therapy; Z79.01 Long term (current) use of anticoagulants
CPT/HCPCS: 36415; 70486; 70486-26; 80053; 83930; 85025; 86140; 99283; 99284-25

== ENCOUNTER 2019-09-16 06:01 | Emergency (ER) | payer MEDICARE, BC ==
[2019-09-16 06:14] VITALS: BP 147/99; PULSE 92
--- NOTE | 2019-09-16 07:08 | EDM.PDOC ---
ED HPI GENERAL MEDICAL PROBLEM - General Chief Complaint: Neurological Problem Stated Complaint: DIZZY/HEAD PRESSURE Time Seen by Provider: 09/16/19 06:11 Source of Information: Reports: Patient History Limitations: Reports: No Limitations - History of Present Illness INITIAL COMMENTS - FREE TEXT/NARRATIVE: The patient presents with dizziness. This has been an ongoing problem for months. She had sinus surgery recently and after that she had the dizziness. She has some pressure in her head and she has been treated a couple times for sinus infections. She has no chest pain or shortness of breath. She has no fever, chills, cough, congestion, chest pain, shortness of breath, numbness or weakness. She has no urinary symptoms but she is worried she may have a bladder infection. Onset: Gradual Duration: Week(s): Severity: Moderate Improves with: Reports: None Worsens with: Reports: None Associated Symptoms: Reports: No Other Symptoms - Related Data Allergies Allergy/AdvReac Type Severity Reaction Status Date / Time No Known Allergies Allergy Verified 09/16/19 06:11 Home Meds: Home Meds Calcium Carbonate [Calcium] 600 mg PO DAILY 05/15/19 [History] Cholecalciferol (Vitamin D3) [Vitamin D3] 5,000 unit PO MOWEFR 05/15/19 [History ] L Acidophil/B Lactis/B Longum [Florajen3] 1 cap PO DAILY 05/15/19 [History] Levothyroxine [Synthroid] 50 mcg PO ACBREAKFAST 05/15/19 [History] Melatonin 10 mg PO BEDTIME 05/15/19 [History] Metoprolol Tartrate 50 mg PO BID 05/15/19 [History] Omeprazole Magnesium [Prilosec Otc] 40 mg PO DAILY 05/15/19 [History] Vitamin B Complex [B Complex] 0.5 tab PO DAILY 05/15/19 [History] Acetaminophen [Tylenol Arthritis] 650 mg PO ASDIRECTED 08/10/19 [History] Apixaban [Eliquis] 2.5 mg PO BID 08/10/19 [History] Fluticasone Propionate [Flonase Allergy Relief] 2 spray INH DAILY 08/10/19 [ History] Ondansetron [Zofran ODT] 4 mg PO ASDIRECTED 08/10/19 [History] FLUoxetine [PROzac] 10 mg PO DAILY 09/16/19 [History] Meclizine [Antivert] 25 mg PO Q6H PRN #30 tab 09/16/19 [Rx] Past Medical History HEENT History: Reports: Macular Degeneration, Sinusitis Other HEENT History: Wears glasses; nose surgery-nasal passages Jun 2019-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 Sinus surgery in 2018. Cardiovascular History: Reports: Afib, High Cholesterol, Hypertension, Pacemaker , Syncope Other Cardiovascular History: Diastolic dysfunction, frequent PVCs, sick sinus syndrome, atypical chest pain Respiratory History: Reports: None Other Respiratory History: sinus problems, does sinus washes Gastrointestinal History: Reports: GERD, Other (See Below) Other Gastrointestinal History: Esophagitis Genitourinary History: Reports: None PROJECT MANAGEMENT History: Reports: None Musculoskeletal History: Reports: Osteoarthritis Neurological History: Reports: Concussion Psychiatric History: Reports: Anxiety, Depression Endocrine/Metabolic History: Reports: Hypothyroidism, Vitamin D Deficiency Hematologic History: Reports: None Immunologic History: Reports: None Oncologic (Cancer) History: Reports: None Dermatologic History: Reports: None - Infectious Disease History Infectious Disease History: Reports: Chicken Pox, Measles - Past Surgical History Head Surgeries/Procedures: Reports: None HEENT Surgical History: Reports: Cataract Surgery Cardiovascular Surgical History: Reports: None Respiratory Surgical History: Reports: None GI Surgical History: Reports: Colonoscopy, EGD Female Surgical History: Reports: Dilitation & Evacuation, Hysterectomy Endocrine Surgical History: Reports: None Neurological Surgical History: Reports: Laminectomy Musculoskeletal Surgical History: Reports: Other (See Below) Other Musculoskeletal Surgeries/Procedures:: Knee surgery Oncologic Surgical History: Reports: None Dermatological Surgical History: Reports: None Social & Family History - Family History Family Medical History: Noncontributory HEENT: Reports: None Cardiac: Reports: CAD Respiratory: Reports: None GI: Reports: None : Reports: None OBGYN: Reports: None Musculoskeletal: Reports: None Neurological: Reports: None Psychiatric: Reports: None Endocrine/Metabolic: Reports: None Hematologic: Reports: None Immunologic: Reports: None Oncologic: Reports: Ovarian - Tobacco Use Smoking Status *Q: Unknown Ever Smoked - Caffeine Use Caffeine Use: Reports: Tea Caffeine Use Comment: rarely with upset stomache and occassionally chamomile tea - Living Situation & Occupation Living situation: Reports: , Alone Occupation: Retired ED ROS GENERAL - Review of Systems Review Of Systems: See Below Constitutional: Reports: No Symptoms HEENT: Reports: No Symptoms Respiratory: Reports: No Symptoms Cardiovascular: Reports: No Symptoms Endocrine: Reports: No Symptoms GI/Abdominal: Reports: No Symptoms : Reports: No Symptoms Musculoskeletal: Reports: No Symptoms Skin: Reports: No Symptoms Neurological: Reports: Dizziness ED EXAM, NEURO - Physical Exam Exam: See Below Exam Limited By: No Limitations General Appearance: Alert, No Apparent Distress Eye Exam: Bilateral Eye: EOMI Ears: Normal External Exam Nose: Normal Inspection Head Exam: Atraumatic, Normocephalic Neck: Normal Inspection Respiratory/Chest: No Respiratory Distress, Lungs Clear, Normal Breath Sounds Cardiovascular: Regular Rate, Rhythm, No Edema, No Murmur GI/Abdominal: Soft, Non-Tender, No Organomegaly, No Mass Neurological: Alert, No Motor/Sensory Deficits, Oriented x 3 Course - Vital Signs Last Recorded V/S: Last Vital Signs Temp 97.5 F 09/16/19 06:11 Pulse 92 09/16/19 06:11 Resp 23 H 09/16/19 06:11 BP 147/99 H 09/16/19 06:11 Pulse Ox 97 09/16/19 06:11 - Orders/Labs/Meds Orders: Active Orders 24 hr Category Date Time Status UA W/MICROSCOPIC [URIN] Stat Lab 09/16/19 07:30 Results Labs: Laboratory Tests 09/16/19 09/16/19 09/16/19 Range/Units 06:48 06:48 07:30 WBC 7.92 (3.98-10.04) K/mm3 RBC 4.43 (3.98-5.22) M/mm3 Hgb 13.2 (11.2-15.7) gm/dl Hct 40.0 (34.1-44.9) % MCV 90.3 (79.4-94.8) fl MCH 29.8 (25.6-32.2) pg MCHC 33.0 (32.2-35.5) g/dl RDW Std Deviation 49.0 H (36.4-46.3) fL Plt Count 275 (182-369) K/mm3 MPV 9.0 L (9.4-12.3) fl Neut % (Auto) 63.3 (34.0-71.1) % Lymph % (Auto) 25.4 (19.3-51.7) % Real % (Auto) 10.5 (4.7-12.5) % Eos % (Auto) 0.4 L (0.7-5.8) Baso % (Auto) 0.3 (0.1-1.2) % Neut # (Auto) 5.02 (1.56-6.13) K/mm3 Lymph # (Auto) 2.01 (1.18-3.74) K/mm3 Real # (Auto) 0.83 H (0.24-0.36) K/mm3 Eos # (Auto) 0.03 L (0.04-0.36) K/mm3 Baso # (Auto) 0.02 (0.01-0.08) K/mm3 Sodium 132 L (136-145) mEq/L Potassium 4.3 (3.5-5.1) mEq/L Chloride 97 L (98-107) mEq/L Carbon Dioxide 27 (21-32) mEq/L Anion Gap 12.3 (5-15) BUN 17 (7-18) mg/dL Creatinine 0.8 (0.55-1.02) mg/dL Est Cr Clr Drug Dosing 40.29 mL/min Estimated GFR (MDRD) > 60 (>60) mL/min BUN/Creatinine Ratio 21.3 H (14-18) Glucose 83 (83-115) mg/dL Calcium 9.2 (8.5-10.1) mg/dL Total Bilirubin 0.7 (0.2-1.0) mg/dL AST 16 (15-37) U/L ALT 26 (14-59) U/L Alkaline Phosphatase 61 (46-116) U/L Total Protein 7.1 (6.4-8.2) g/dl Albumin 3.5 (3.4-5.0) g/dl Globulin 3.6 gm/dL Albumin/Globulin Ratio 1.0 (1-2) Urine Color Yellow (Yellow) Urine Appearance Clear (Clear) Urine pH 7.0 (5.0-8.0) Ur Specific [place] 1.020 (1.005-1.030) Urine Protein Negative (Negative) Urine Glucose (UA) Negative (Negative) Urine Ketones Negative (Negative) Urine Occult Blood Negative (Negative) Urine Nitrite Negative (Negative) Urine Bilirubin Negative (Negative) Urine Urobilinogen 0.2 (0.2-1.0) Ur Leukocyte Esterase Negative (Negative) Meds: Medications Discontinued Medications Generic Name Dose Route Start Last Admin Trade Name Pierce PRN Reason Stop Dose Admin Meclizine HCl 25 mg 09/16/19 06:29 09/16/19 06:43 Antivert PO 09/16/19 06:30 25 mg ONETIME ONE Administration - Re-Assessments/Exams Free Text/Narrative Re-Assessment/Exam: 09/16/19 07:07 I ordered labs, UA and antivert 25mg PO. 09/16/19 08:01 Her CBC looks good. Her Na is low at 132. Her UA shows no UTI. I will get her on some antivert. Departure - Departure Time of Disposition: 08:05 Disposition: Home, Self-Care 01 Condition: Good Clinical Impression: Dizziness - Discharge Information *PRESCRIPTION DRUG MONITORING PROGRAM REVIEWED*: Not Applicable *COPY OF PRESCRIPTION DRUG MONITORING REPORT IN PATIENT SU: Not Applicable Prescriptions: Meclizine [Antivert] 25 mg PO Q6H PRN #30 tab PRN Reason: Dizziness Referrals: Charis Desir MD [Primary Care Provider] - 1 Week Forms: ED Department Discharge Additional Instructions: Take your medication as prescribed. Take the antivert every 6 hours as needed for dizziness. Please return if you are worse. Sepsis Event Note - Evaluation Sepsis Screening Result: No Definite Risk - Focused Exam Vital Signs: Vital Signs Temp Pulse Resp BP Pulse Ox 09/16/19 06:11 97.5 F 92 23 H 147/99 H 97 Date Exam was Performed: 09/16/19 Time Exam was Performed: 08:01 - My Orders Last 24 Hours: My Active Orders 09/16/19 07:30 UA W/MICROSCOPIC [URIN] Stat - Assessment/Plan Last 24 Hours: My Active Orders 09/16/19 07:30 UA W/MICROSCOPIC [URIN] Stat
== END 2019-09-16 08:16 | disposition home or self-care (01) ==
LOC: JD.ED 06:01
DX: R42 Dizziness and giddiness (principal); I48.91 Unspecified atrial fibrillation; I10 Essential (primary) hypertension; K21.9 Gastro-esophageal reflux disease without esophagitis; E03.9 Hypothyroidism, unspecified; F32.9 Major depressive disorder, single episode, unspecified; F41.9 Anxiety disorder, unspecified; Z79.01 Long term (current) use of anticoagulants; Z79.899 Other long term (current) drug therapy; Z79.890 Hormone replacement therapy
CPT/HCPCS: 36415; 80053; 81001; 85025; 99284; A9270; 99283

== ENCOUNTER 2019-09-17 20:38 | Emergency (ER) | payer MEDICARE, BC ==
[2019-09-17 20:51] VITALS: BP 147/90; PULSE 91
--- NOTE | 2019-09-17 21:52 | EDM.PDOC ---
ED HPI GENERAL MEDICAL PROBLEM - General Chief Complaint: Neurological Problem Stated Complaint: no memory dizzy Time Seen by Provider: 09/17/19 21:43 Source of Information: Reports: Patient History Limitations: Reports: No Limitations - History of Present Illness INITIAL COMMENTS - FREE TEXT/NARRATIVE: Patient is an unfortunate 79-year-old female who presents emergency Department today with complaint of dizziness. Patient reports that she has had a positional change dizziness status been going on for greater than a year. Patient reports she's been evaluated by multiple physicians in the past and does not had anyone to find any reason for her dizziness. Patient denies any nausea no vomiting no headaches no fevers no chills no nuchal rigidity. She was seen here yesterday for same and was given meclizine. Patient reports she has had no improvement in symptoms of meclizine she also reports that she has insomnia and reports that if she just can get some sleep that she thinks it would be better patient was seen here yesterday and had a extensive workup which was very reassuring, however patient reports she has never had a CT of her head to evaluate this dizziness - Related Data Allergies Allergy/AdvReac Type Severity Reaction Status Date / Time No Known Allergies Allergy Verified 09/16/19 06:11 Home Meds: Home Meds Calcium Carbonate [Calcium] 600 mg PO DAILY 05/15/19 [History] Cholecalciferol (Vitamin D3) [Vitamin D3] 5,000 unit PO MOWEFR 05/15/19 [History ] L Acidophil/B Lactis/B Longum [Florajen3] 1 cap PO DAILY 05/15/19 [History] Levothyroxine [Synthroid] 50 mcg PO ACBREAKFAST 05/15/19 [History] Melatonin 10 mg PO BEDTIME 05/15/19 [History] Metoprolol Tartrate 50 mg PO BID 05/15/19 [History] Omeprazole Magnesium [Prilosec Otc] 40 mg PO DAILY 05/15/19 [History] Vitamin B Complex [B Complex] 0.5 tab PO DAILY 05/15/19 [History] Acetaminophen [Tylenol Arthritis] 650 mg PO ASDIRECTED 08/10/19 [History] Fluticasone Propionate [Flonase Allergy Relief] 2 spray INH DAILY 08/10/19 [ History] Ondansetron [Zofran ODT] 4 mg PO ASDIRECTED 08/10/19 [History] FLUoxetine [PROzac] 10 mg PO DAILY 09/16/19 [History] Meclizine [Antivert] 25 mg PO Q6H PRN #30 tab 09/16/19 [Rx] Past Medical History HEENT History: Reports: Macular Degeneration, Sinusitis Other HEENT History: Wears glasses; nose surgery-nasal passages Jun 2019-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 Sinus surgery in 2018. Cardiovascular History: Reports: Afib, High Cholesterol, Hypertension, Pacemaker , Syncope Other Cardiovascular History: Diastolic dysfunction, frequent PVCs, sick sinus syndrome, atypical chest pain Respiratory History: Reports: None Other Respiratory History: sinus problems, does sinus washes Gastrointestinal History: Reports: GERD, Other (See Below) Other Gastrointestinal History: Esophagitis Genitourinary History: Reports: None [employer] History: Reports: None Musculoskeletal History: Reports: Osteoarthritis Neurological History: Reports: Concussion Psychiatric History: Reports: Anxiety, Depression Endocrine/Metabolic History: Reports: Hypothyroidism, Vitamin D Deficiency Hematologic History: Reports: None Immunologic History: Reports: None Oncologic (Cancer) History: Reports: None Dermatologic History: Reports: None - Infectious Disease History Infectious Disease History: Reports: Chicken Pox, Measles - Past Surgical History Head Surgeries/Procedures: Reports: None HEENT Surgical History: Reports: Cataract Surgery Cardiovascular Surgical History: Reports: None Respiratory Surgical History: Reports: None GI Surgical History: Reports: Colonoscopy, EGD Female Surgical History: Reports: Dilitation & Evacuation, Hysterectomy Endocrine Surgical History: Reports: None Neurological Surgical History: Reports: Laminectomy Musculoskeletal Surgical History: Reports: Other (See Below) Other Musculoskeletal Surgeries/Procedures:: Knee surgery Oncologic Surgical History: Reports: None Dermatological Surgical History: Reports: None Social & Family History - Family History Family Medical History: Noncontributory HEENT: Reports: None Cardiac: Reports: CAD Respiratory: Reports: None GI: Reports: None : Reports: None OBGYN: Reports: None Musculoskeletal: Reports: None Neurological: Reports: None Psychiatric: Reports: None Endocrine/Metabolic: Reports: None Hematologic: Reports: None Immunologic: Reports: None Oncologic: Reports: Ovarian - Tobacco Use Smoking Status *Q: Never Smoker - Caffeine Use Caffeine Use: Reports: Soda, Tea Caffeine Use Comment: rarely with upset stomache and occassionally chamomile tea - Recreational Drug Use Recreational Drug Use: No - Living Situation & Occupation Living situation: Reports: , Alone Occupation: Retired ED ROS GENERAL - Review of Systems Review Of Systems: See Below Constitutional: Denies: Fever, Chills Respiratory: Denies: Shortness of Breath Cardiovascular: Denies: Chest Pain Endocrine: Reports: Fatigue Neurological: Reports: Dizziness. Denies: Confusion, Paresthesia ED EXAM, NEURO - Physical Exam Exam: See Below Exam Limited By: No Limitations General Appearance: Alert, WD/WN, Anxious, Mild Distress Eye Exam: Bilateral Eye: EOMI, PERRL Throat/Mouth: Normal Inspection, Normal Lips, Normal Teeth, Normal Gums, Normal Oropharynx, Normal Voice, No Airway Compromise Neck: Normal Inspection, Supple, Non-Tender, Full Range of Motion Respiratory/Chest: No Respiratory Distress, Lungs Clear, Normal Breath Sounds, No Accessory Muscle Use, Chest Non-Tender Cardiovascular: Normal Peripheral Pulses, Regular Rate, Rhythm, No Edema, No Gallop, No JVD, No Murmur, No Rub GI/Abdominal: Normal Bowel Sounds, Soft, Non-Tender, No Organomegaly, No Distention, No Abnormal Bruit, No Mass Neurological: Alert, Normal Mood/Affect, Normal Dorsiflexion, CN II-XII Intact, Normal Plantar Flexion, Normal Gait, Normal Reflexes, No Motor/Sensory Deficits , Oriented x 3 Back Exam: Normal Inspection, Full Range of Motion, NT Extremities: Normal Inspection, Normal Range of Motion, Non-Tender, No Pedal Edema, Normal Capillary Refill Skin Exam: Warm, Dry Course - Vital Signs Last Recorded V/S: Last Vital Signs Temp 98.2 F 09/17/19 21:04 Pulse 91 09/17/19 20:48 Resp 20 09/17/19 20:48 BP 147/90 H 09/17/19 20:48 Pulse Ox 98 09/17/19 20:48 - Orders/Labs/Meds Orders: Active Orders 24 hr Category Date Time Status Head wo Cont [CT] Stat Exams 09/17/19 21:49 Taken LORazepam [Ativan] Med 09/18/19 21:00 Active 0.5 mg PO BEDTIME Medication Orders Lorazepam (Ativan) 0.5 mg PO BEDTIME CELIO Meds: Medications Generic Name Dose Route Start Last Admin Trade Name Freq PRN Reason Stop Dose Admin Lorazepam 0.5 mg 09/18/19 21:00 Ativan PO BEDTIME CELIO Discontinued Medications Generic Name Dose Route Start Last Admin Trade Name Pierce PRN Reason Stop Dose Admin Lorazepam 1 mg 09/17/19 21:53 Ativan IM 09/17/19 21:54 ONETIME ONE - Re-Assessments/Exams Free Text/Narrative Re-Assessment/Exam: 09/17/19 22:40 CT head "impression: #1 no acute intracranial process. #2 atrophy and chronic microvascular changes consistent with the patient's advanced age. #3 moderate calcific atherosclerosis. Number for mild sinus inflammatory disease." Free Text/Narrative Re-Assessment/Exam: 09/17/19 22:40 She had an extensive workup yesterday no CT evidence of acute process we'll discharge patient home and have patient follow up outpatient with PCP Departure - Departure Time of Disposition: 22:41 Disposition: Home, Self-Care 01 Clinical Impression: Dizziness - Discharge Information Referrals: Charis Desir MD [Primary Care Provider] - Forms: ED Department Discharge Additional Instructions: Home, rest, return as needed for worsening condition Sepsis Event Note - Evaluation Sepsis Screening Result: No Definite Risk - Focused Exam Vital Signs: Vital Signs Temp Pulse Resp BP Pulse Ox 09/17/19 21:04 98.2 F 09/17/19 20:48 97.7 F 91 20 147/90 H 98 Date Exam was Performed: 09/17/19 Time Exam was Performed: 22:40 - My Orders Last 24 Hours: My Active Orders 09/17/19 21:49 Head wo Cont [CT] Stat 09/18/19 21:00 LORazepam [Ativan] 0.5 mg PO BEDTIME - Assessment/Plan Last 24 Hours: My Active Orders 09/17/19 21:49 Head wo Cont [CT] Stat 09/18/19 21:00 LORazepam [Ativan] 0.5 mg PO BEDTIME
[2019-09-17] MEDS ORDERED: LORazepam 2 MG/ML SDV IM ONE (21:53)
[2019-09-17] MEDS ORDERED: LORazepam 0.5 MG Tab PO ONE (22:45)
--- NOTE | 2019-09-18 07:36 | CT ---
Head CT Technique: Multiple axial sections were obtained through the brain. Intravenous contrast was not utilized. Comparison: No prior intracranial imaging. Findings: Ventricles along with basal cisterns and sulci over the convexities are moderately prominent. Minimal areas of diminished density are noted within the periventricular white matter compatible with minimal small vessel ischemic demyelination change. No evidence of intracranial hemorrhage. No midline shift or mass effect is seen. Atherosclerotic calcification is noted within the carotid siphon. Bone window settings were reviewed. Visualized mastoid sinuses show nothing acute. Mild areas of mucosal thickening are noted within the ethmoid and upper left maxillary sinus. Impression: 1. Senescent change as noted above. 2. Slight mucosal thickening within the paranasal sinuses which appears chronic. 3. No acute intracranial abnormality is appreciated. Diagnostic code #2 This report was dictated in [place] Standard Time I agree with preliminary report from [facility], finalized on 09/17/19, 11:27 PM Central Time
[2019-09-18] MEDS ORDERED: LORazepam 0.5 MG Tab PO SCH (21:00)
== END 2019-09-17 23:01 | disposition home or self-care (01) ==
LOC: JD.ED 20:38
DX: R42 Dizziness and giddiness (principal); I10 Essential (primary) hypertension; I48.91 Unspecified atrial fibrillation; E78.00 Pure hypercholesterolemia, unspecified; K21.9 Gastro-esophageal reflux disease without esophagitis; M19.90 Unspecified osteoarthritis, unspecified site; F41.9 Anxiety disorder, unspecified; F32.9 Major depressive disorder, single episode, unspecified; E03.9 Hypothyroidism, unspecified; Z79.899 Other long term (current) drug therapy
CPT/HCPCS: 70450; 99284; A9270; 99283

== ENCOUNTER → 2021-04-20 | Day surgery (SDC) | payer MEDICARE, BC ==
[~2021-04-20] MED LIST changes: +Brimonidine 0.2% Ophth Soln 5 ML Bottle EYERT SCH; -Lactated Ringers 1,000 ML IV SCH; -Lidocaine 1%/Sod Bicarbonate in NS 8.4% 1 ML Syringe IDERM PRN; -Sodium Chloride 0.9% 10 ML Syringe FLUSH PRN
[2021-04-20] MEDS: Phenylephrine 2.5% Ophth Soln 2 ML Bot EYERT SCH ×2 (11:14→11:23)
[2021-04-20] MEDS: Tropicamide 1% Ophth Soln 15 ML Bottle EYERT SCH ×2 (11:19→11:29)
== END ==
LOC: JD.SDS 10:38
PROVIDERS: ATTEND Ophthalmology
DX: H26.491 Other secondary cataract, right eye (principal); H52.31 Anisometropia; H16.223 Keratoconjunctivitis sicca, not specified as Sjogren's, bilateral; H18.599 Other hereditary corneal dystrophies, unspecified eye; H35.3132 Nonexudative age-related macular degeneration, bilateral, intermediate dry stage; H35.363 Drusen (degenerative) of macula, bilateral; H16.103 Unspecified superficial keratitis, bilateral; Z96.1 Presence of intraocular lens

== ENCOUNTER 2022-01-22 09:51 | Emergency (ER) | payer MEDICARE, BC ==
[2022-01-22 11:34] VITALS: BP 126/84; PULSE 64
== END 2022-01-22 11:32 | disposition home or self-care (01) ==
LOC: JD.ED 09:51
DX: R30.0 Dysuria (principal); R35.0 Frequency of micturition; E03.9 Hypothyroidism, unspecified; I48.91 Unspecified atrial fibrillation; E78.00 Pure hypercholesterolemia, unspecified; I10 Essential (primary) hypertension; K21.9 Gastro-esophageal reflux disease without esophagitis; Z95.0 Presence of cardiac pacemaker; Z79.899 Other long term (current) drug therapy
CPT/HCPCS: 81001; 99283

== ENCOUNTER 2022-12-06 13:02 | Emergency (ER) | payer MEDICARE, OTHER ==
[2022-12-06] MEDS ORDERED: Sodium Chloride 0.9% 10 ML Syringe FLUSH PRN (13:55)
[2022-12-06 14:44] LABS: ESTIMATED GFR 73 mL/min (>60)
[2022-12-06 16:26] LABS: CORONAVIRUS COVID-19 NAA NEGATIVE (NEGATIVE)
[2022-12-06 17:42] VITALS: BP 158/87; PULSE 75
== END 2022-12-06 17:24 | disposition home or self-care (01) ==
LOC: JD.ED 13:02
DX: R10.13 Epigastric pain (principal); R53.83 Other fatigue; I48.0 Paroxysmal atrial fibrillation; I10 Essential (primary) hypertension; K21.9 Gastro-esophageal reflux disease without esophagitis; E03.9 Hypothyroidism, unspecified; Z79.899 Other long term (current) drug therapy; Z20.822 Contact with and (suspected) exposure to COVID-19
CPT/HCPCS: 0241U; 36415; 80053; 81001; 83690; 83735; 85025; 86140; 93005; 99283; 93010; 99284

== ENCOUNTER 2024-05-07 06:38 | Day surgery (SDC) | payer MEDICARE, OTHER ==
[2024-05-07] MEDS ORDERED: Lidocaine 2% 5 ML SDV ONE (07:00)
[2024-05-07] MEDS ORDERED: Propofol 200 MG/20 ML SDV ONE (07:00)
[2024-05-07] MEDS: Lactated Ringers 1,000 ML IV SCH (07:00)
[2024-05-07 11:06] VITALS: BP 128/77; PULSE 70
== END 2024-05-07 09:20 | disposition home or self-care (01) ==
LOC: JD.SDS 06:38
PROVIDERS: ATTEND Family Medicine
DX: K31.7 Polyp of stomach and duodenum (principal); K44.9 Diaphragmatic hernia without obstruction or gangrene; K29.70 Gastritis, unspecified, without bleeding; R13.10 Dysphagia, unspecified; I48.0 Paroxysmal atrial fibrillation; E03.9 Hypothyroidism, unspecified; G47.33 Obstructive sleep apnea (adult) (pediatric); I10 Essential (primary) hypertension; E78.00 Pure hypercholesterolemia, unspecified; Z79.899 Other long term (current) drug therapy; Z79.890 Hormone replacement therapy; Z95.0 Presence of cardiac pacemaker
CPT/HCPCS: 43239; J2704; J7120; 00731; 88305; 88342; 99100; J3490